=== PATIENT | female | born 1965 | race Two or more races ===

== ENCOUNTER → 2020-09-18 14:12 | Outpatient (BNVA) | payer OTHER, SELFPAY | PROVIDERS: PCP Nurse Practitioner Family; Visit Provider Nurse Practitioner Family | DX: Z13.89 Encounter for screening for other disorder (principal) | CPT/HCPCS: Q3014 ==

== ENCOUNTER → 2020-10-19 13:11 | Outpatient (BNVA) | payer OTHER, SELFPAY | PROVIDERS: PCP Internal Medicine; Visit Provider Nurse Practitioner Family | DX: R07.89 Other chest pain (principal); R06.00 Dyspnea, unspecified | CPT/HCPCS: 93005; 99202; Q3014 ==

== ENCOUNTER → 2020-10-23 07:41 | Outpatient (REF) | payer OTHER, SELFPAY ==
--- NOTE | 2020-10-23 07:47 | CA_ITS ---
Acquisition Time: 2020-10-23 08:28:55 Total Exercise Time: 00:05:11 Test Indications: CP Medications: SEE CHART Protocol: PITO Max HR: 141 BPM 86% of Pred: 163 BPM Max BP: 150/080 mmHG Max Work Load: 7.0 METS Exercise stress test using Pito protocol total of 5 min 11 sec. METS 7.00 and TAPHR up to 86 %. Pt tolerated well, denies any anginal sx. EKG without any arrhythmias, no ischemic changes seen during exercise or in recovery. Normotensive response to exercise. Test reviewed with Dr. Moon Referred By: Sandoval Moon Overread By: Liane Guerrero NP
== END ==
LOC: HO.CARD 07:41
PROVIDERS: Visit Provider Internal Medicine Cardiovascular Disease
DX: R07.89 Other chest pain (principal); R06.00 Dyspnea, unspecified
CPT/HCPCS: 93016; 93017; 93018

== ENCOUNTER → 2020-11-30 09:29 | Outpatient (REF) | payer OTHER, SELFPAY ==
--- NOTE | 2020-11-30 09:33 | CA_ITS ---
Transthoracic Echocardiogram Patient (Last, First, Middle): Valerie Alford M Gender: Female Date of : 1965 Age: 55 Procedure Date: 11/30/2020 Procedure Type: Transthoracic Echocardiogram Location: OP Height: 162.56 cm Weight: 107.5 kg BSA: 2.10 m2 Heart Rate: bpm BP: 128 / 80 mmHg Counter Attendant: Referring MD: Sandoval Moon MD Symptoms: R07.89 - Other chest pain Study Quality: Fair ECG Rhythm: Sinus Conclusions: - The left ventricular systolic function is normal. The visually estimated ejection fraction is between 60-65%. - No obvious valvular pathology seen on this study. Findings Left Ventricle Normal left ventricular cavity size. There is normal left ventricular wall thickness. The left ventricular systolic function is normal. The visually estimated ejection fraction is between 60-65%. There is no evidence of regional wall motion abnormalities. Diastolic function is normal for age. Right Ventricle Normal right ventricular cavity size and systolic function. Atria The left atrium is normal in size. The right atrium is normal in size. Aortic Valve The aortic valve was not well visualized. There is no aortic valve stenosis. There is no aortic valve regurgitation. Mitral Valve The mitral valve appears normal. There is no mitral valve regurgitation. There is no mitral valve stenosis. Pulmonic Valve The pulmonic valve was not well visualized. Tricuspid Valve Normal tricuspid valve structure. There is trace tricuspid valve regurgitation. The pulmonary artery systolic pressure is normal. Great Vessels The aortic annulus, sinuses of valsalva, and asc aorta are normal in size. Venous The inferior vena cava is normal in size and collapses greater than 50% with inspiration. Pericardium/Pleural There is no evidence of pericardial effusion. Prior Study Comparison No prior study available for comparison. Recommendations, Care & Conclusions No obvious valvular pathology seen on this study. Measurements 2D Linear Measurements IVSd: 1.17 0.6-0.9/0.6-1.0 cm LVIDd: 3.92 3.9-5.3/4.2-5.9 cm LVIDd Index: 1.87 2.4-3.2/2.2-3.1 cm/m2 LVIDs: 2.25 2.0-3.6 cm LVPWd: 1.11 0.7-1.1 cm Ao Root: 2.90 2.1-3.5 cm LA Diam: 3.50 2.7-3.8/3.0-4.0 cm LAIDs Index: 1.67 1.5-2.3 cm/m2 LV Mass: 185.22 67-162/88-224 g LV Mass Index: 88.20 43-95/49-115 g/m2 LVOT Diam: 2.10 3.0+(-)1.3 cm Mitral Valve MV Pk E: 0.95 MV PK A: 0.79 MV Decel Time: 134.00 E/A: 1.20 E'Lateral: 13.60 E'Medial: 12.70 E/E' Med: 7.40 E/E' Lat: 7.00 PHT: 39.00 MVA PHT: 5.64 Decel Mcdonald: 7.07 Aortic Valve AoV Pk Spike: 1.28 AoV Mn Spike: 0.86 AoV VTI: 0.29 AoV Pk Grad: 7.00 Aov Mn Grad: 3.00 HERMINIA Cont.VTI: 2.69 LVOT LVOT Pk Spike: 0.92 LVOT Mn Spike: 0.55 LVOT VTI: 0.23 LVOT Pk Grad: 3.00 LVOT Mn Grad: 2.00 LVOT Diam: 2.10 LVOT Area: 3.46 Diastolic Function MV Pk E: 0.95 MV Pk A: 0.79 E/A: 1.20 E'Medial: 12.70 E/E' Med: 7.40 E' Laterial: 13.60 E/E' Lat: 7.00 Tricuspid Valve TR Pk Spike: 1.60 TR Pk Grad: 10.00 RA Press: 3.00 RVSP: 13.00 Great Vessels Aorta Ao Root-2D: 2.90 2.0-3.7 cm Ao Asc: 3.10 2.1-3.4 cm Pulmonary Valve PV Pk Spike: 1.17 Peak PV Grad: 5.00 Updated in Other Vendor System with Status of Final Patrick Connell MD electronically signed on 11/30/2020 4:18:45 PM with status of Final
== END ==
LOC: HO.CARD 09:29
PROVIDERS: Visit Provider Internal Medicine Cardiovascular Disease
DX: R07.89 Other chest pain (principal); R06.00 Dyspnea, unspecified
CPT/HCPCS: 93306

== ENCOUNTER 2020-12-10 08:00 | Day surgery (SDC) | payer OTHER, SELFPAY ==
[2020-12-04 09:22] VITALS: BMI 46.1
--- NOTE | 2020-12-09 09:23 | P.CONAN_ITS ---
Documented by User: Valentina Perry 12/09/20 09:25 HPI - Anesthesia Eval Consult details Narrative: 55yo F for Colonoscopy Cardiac cleared at [facility] (sent by GI for pt report of chest pressure) ON LICENSE OF [facility] Active Problems Active Problems: All Active Problems (Updated 12/04/20 @ 09:21 by Angeline Kilgore) COUCH (dyspnea on exertion) (Acute) Chest pressure (Acute) Past Medical History Medical History Asthma Elevated cholesterol HTN (hypertension) Hx of migraine headaches Hx of renal calculi Family History Family History Mother HTN (hypertension) Cancer Family/Other Cancer HTN (hypertension) Surgical History Surgical History H/O colonoscopy History of pterygium excision Hx of dilation and curettage Hx of hemorrhoidectomy Hx of lithotripsy Hx of oophorectomy Social History Social History Household Members: None Smoking Status: Never smoker Use of substances other than those prescribed or required for medical reasons: No Advance Directives Information Provided: No Current occupational status: disabled [employer] Allergies Allergy/AdvReac Type Severity Reaction Status Date / Time No Known Allergies Allergy Verified 10/19/20 13:11 Home Medications Medication Instructions Recorded Confirmed Last Taken Type albuterol sulfate 90 mcg/actuation 2 puff INHALATION Q4-6H PRN 09/18/20 12/04/20 Unknown History aerosol inhaler ztcafqllru-pcygqjhhgrglc-yydevhvc 1 cap PO Q4H PRN 09/18/20 12/04/20 Unknown History 50 mg-300 mg-40 mg capsule cholecalciferol (vitamin D3) 25 25 mcg PO DAILY 09/18/20 12/04/20 Unknown History mcg (1,000 unit) capsule furosemide 20 mg tablet 20 mg PO DAILY 09/18/20 12/04/20 Unknown History hydrochlorothiazide 25 mg tablet 25 mg PO DAILY 09/18/20 12/04/20 Unknown History loratadine 10 mg capsule 10 mg PO DAILY 09/18/20 12/04/20 Unknown History propranolol 160 mg capsule,24 160 mg PO DAILY 09/18/20 12/04/20 Unknown History hr,extended release simvastatin 20 mg tablet 20 mg PO DAILY 09/18/20 12/04/20 Unknown History albuterol sulfate 2.5 mg INHALATION TID 10/19/20 12/04/20 Unknown History blood pressure test kit-shalom #1 ea 10/19/20 Unknown History diclofenac sodium 1 % topical gel 1 ea TOPICAL DAILY 10/19/20 12/04/20 Unknown History paroxetine HCl 10 mg tablet 10 mg PO DAILY 10/19/20 12/04/20 Unknown History Exam Exam Date and Time: December 09, 2020922 Height,Weight and Vital Signs: Height 5 ft 4 in Weight 122 kg Narrative Narrative: EKG 09/2020 NSR, 71/min, normal ECG< QTc 408 msec 10/2020 Exercise stress test using Bentley protocol total of 5 min 11 sec. METS 7.00 and TAPHR up to 86 %. Pt tolerated well, denies any anginal sx. EKG without any arrhythmias, no ischemic changes seen during exercise or in recovery. Normotensive response to exercise. Echo 11/2020 Conclusions: - The left ventricular systolic function is normal. The visually estimated ejection fraction is between 60-65%. - No obvious valvular pathology seen on this study. Assessment and Plan Assessment Anesthesia Assessment: Chart Reviewed Documented by User: Emre Broussard MD 12/10/20 09:07 ON LICENSE OF [facility] Past Medical History Medical History Asthma Elevated cholesterol HTN (hypertension) Hx of migraine headaches Hx of renal calculi Family History Family History Mother HTN (hypertension) Cancer Family/Other Cancer HTN (hypertension) Surgical History Surgical History H/O colonoscopy History of pterygium excision Hx of dilation and curettage Hx of hemorrhoidectomy Hx of lithotripsy Hx of oophorectomy Social History Social History Household Members: None Smoking Status: Never smoker Use of substances other than those prescribed or required for medical reasons: No Advance Directives Information Provided: No Current occupational status: disabled Meds Allergies Allergy/AdvReac Type Severity Reaction Status Date / Time No Known Allergies Allergy Verified 10/19/20 13:11 Home Medications Medication Instructions Recorded Confirmed Last Taken Type albuterol sulfate 90 mcg/actuation 2 puff INHALATION Q4-6H PRN 09/18/20 12/04/20 Unknown History aerosol inhaler hyxuklynxx-rbgtinpzpvrru-kauibivh 1 cap PO Q4H PRN 09/18/20 12/04/20 Unknown History 50 mg-300 mg-40 mg capsule cholecalciferol (vitamin D3) 25 25 mcg PO DAILY 09/18/20 12/04/20 Unknown History mcg (1,000 unit) capsule furosemide 20 mg tablet 20 mg PO DAILY 09/18/20 12/04/20 Unknown History hydrochlorothiazide 25 mg tablet 25 mg PO DAILY 09/18/20 12/04/20 Unknown History loratadine 10 mg capsule 10 mg PO DAILY 09/18/20 12/04/20 Unknown History propranolol 160 mg capsule,24 160 mg PO DAILY 09/18/20 12/04/20 Unknown History hr,extended release simvastatin 20 mg tablet 20 mg PO DAILY 09/18/20 12/04/20 Unknown History albuterol sulfate 2.5 mg INHALATION TID 10/19/20 12/04/20 Unknown History blood pressure test kit-large #1 ea 10/19/20 Unknown History diclofenac sodium 1 % topical gel 1 ea TOPICAL DAILY 10/19/20 12/04/20 Unknown History paroxetine HCl 10 mg tablet 10 mg PO DAILY 10/19/20 12/04/20 Unknown History Assessment and Plan Assessment Anesthesia Assessment: Anesthesia Plan Discussed Final Anesthetic Review NPO: Yes ASA Class: III Final Preanesthetic Review: No Changes in Pt Med Stat, Meds/Allgs Chart Reviewed, Consent Obtained/Reviewed and Anes Risks/Benef Reviewed Patient Risk: High Procedure Risk: Low Anesthetic Plan Anesthetic Plan: MAC: Disposition: Standard PACU
[2020-12-10 08:40] VITALS: BP 149/88; PULSE 90; RESP 16; TEMP 36.4; O2SAT 97
--- NOTE | 2020-12-10 08:58 | MHC.SHP ---
Pre-Procedural Eval Section B Chief Complaint: Screening Relevant Family History (Specify if Yes): No Relevant Social History: None Present Medications: see Short Stay Collaborative assessment Medical History: Significant History (Asthma Elevated cholesterol HTN (hypertension) Hx of migraine headaches Hx of renal calculi) History of Previous Operations: Relevant previous surgery/procedure and date(s) (H/O colonoscopy History of pterygium excision Hx of dilation and curettage Hx of hemorrhoidectomy Hx of lithotripsy Hx of oophorectomy) Allergies: Allergies Allergy/AdvReac Type Severity Reaction Status Date / Time No Known Allergies Allergy Verified 10/19/20 13:11 Review of Systems Sugical H&P ROS: Negative: Constitution, Cardiovascular, Respiratory, Neurological, Psychiatric, Hem-Onc, Allergic/Immunologic, Gastrointestinal, Genitourinary, Musculoskeletal, Integumentary, Endocrine and Eyes/Ears/Nose/Throat Exam Surgical H&P Exam: Normal: HEENT, Normal: Heart, Normal: Lungs, Normal: Extremities, Normal: Abdomen, Normal: Skin and Normal: Neurological Plan Diagnosis/Plan: Unchanged I have reviewed the history and physical and performed a pertinent physical examination on my patient. No changes have occurred unless specified.
--- NOTE | 2020-12-10 08:59 | PM.OP ---
Brief Operative Note Date of Service: 12/10/20 Pre-op diagnosis: colon screening Post-op diagnosis: same Surgeon: Sherrie Infante MD Anesthesia: MAC Was an Rug Setter Velvet used for this Procedure?: No Estimated blood loss (mL): 0 Condition: stable Disposition: PACU
--- NOTE | 2020-12-10 09:00 | W.PM.OPN ---
Operative Note Operative Note Date of Service: 12/10/20 Narrative: Operative Information Procedure Description: Colonoscopy COLONOSCOPY Instrument: Olympus variable stiffness pediatric scope 190L Colonoscopy Monitoring: Vital signs and clinical assessment, continuous EKG monitoring, Pulse oximetry, Carbon Dioxide monitoring and blood pressure monitoring were done throughout the procedure. Colon withdrawal time was 8 minutes. Procedure: The patient was placed in the left lateral decubitis position and pre-procedure medications were administered. After a digital rectal examination of the ano-rectum, the video colonoscope was inserted into the rectum and advanced through the colon to the cecum/TI. The colonoscope was slowly withdrawn in a retrograde panoramic fashion and the colon mucosa was carefully examined including a retroflexed view of the rectum. Findings and interventions are described below. Procedure Difficulty:easy Findings: Terminal Ileum- mild erythema, bx taken Cecum:normal, bx taken Ascending Colon: normal, bx taken Transverse Colon -normal Descending Colon:normal Sigmoid Colon: mild to moderate diverticulosis noted Rectum: Retroflexion with medium sized internal hemorrhoids, grade II Anorectum - internal hemorrhoids seen at anal verge Colon preparation: [place] Bowel Preparation Scale Right colon; 3 Transverse colon: 2 Left colon; 2 (0 = Unprepared colon segment with mucosa not seen due to solid stool that cannot be cleared. 1 = Portion of mucosa of the colon segment seen, but other areas of the colon segment not well seen due to staining, residual stool and/or opaque liquid. 2 = Minor amount of residual staining, small fragments of stool and/or opaque liquid, but mucosa of colon segment seen well. 3 = Entire mucosa of colon segment seen well with no residual staining, small fragments of stool or opaque liquid) Impression and Post Procedure Diagnosis: internal hemorrhoids diverticular disease mild ileitis Plan: High fiber diet leaflet Avoid straining at stool, epsom salts and sitz bath, anusol supps or cream as needed Repeat Colonoscopy in 10 years or earlier if clinically indicated Above findings were reviewed with the patient and relevant handouts were provided if indicated.
[2020-12-10] MEDS: Lactated Ringers 1,000 ML 100 ML IVCONT (09:01)
[2020-12-10 09:39] VITALS: BP 122/71; PULSE 84; RESP 16; TEMP 36.2; O2SAT 99
[2020-12-10 09:44] VITALS: BP 140/74; PULSE 85; RESP 20; O2SAT 98
== END 2020-12-10 10:30 | disposition home or self-care (01) ==
PROVIDERS: Visit Provider Internal Medicine Gastroenterology
PROC: 0DJD8ZZ Inspection of Lower Intestinal Tract, Via Natural or Artificial Opening Endoscopic (ICD-10-PCS; CPT 45378; principal; 2020-12-10 09:20)
DX: Z12.11 Encounter for screening for malignant neoplasm of colon (principal); K52.89 Other specified noninfective gastroenteritis and colitis; K57.30 Diverticulosis of large intestine without perforation or abscess without bleeding; K64.1 Second degree hemorrhoids; K64.4 Residual hemorrhoidal skin tags; I10 Essential (primary) hypertension; J45.909 Unspecified asthma, uncomplicated; Z79.899 Other long term (current) drug therapy
CPT/HCPCS: 45380; 88305

== ENCOUNTER → 2020-12-17 12:44 | Outpatient (BNVA) | payer OTHER, SELFPAY | PROVIDERS: Visit Provider Internal Medicine Cardiovascular Disease | DX: R06.00 Dyspnea, unspecified (principal); R07.89 Other chest pain; I10 Essential (primary) hypertension | CPT/HCPCS: 99212 ==

== ENCOUNTER → 2020-12-24 12:44 | Outpatient (BNVA) | payer OTHER, SELFPAY | PROVIDERS: Visit Provider Nurse Practitioner Family | DX: K59.00 Constipation, unspecified (principal); K57.90 Diverticulosis of intestine, part unspecified, without perforation or abscess without bleeding; Z98.890 Other specified postprocedural states | CPT/HCPCS: 99212 ==

== ENCOUNTER → 2021-01-22 13:41 | Outpatient (BNVA) | payer OTHER, SELFPAY | PROVIDERS: Visit Provider Nurse Practitioner Family | DX: K59.00 Constipation, unspecified (principal) | CPT/HCPCS: 99212 ==

== ENCOUNTER → 2021-06-10 12:32 | Outpatient (BNVA) | payer OTHER, SELFPAY | PROVIDERS: Visit Provider Internal Medicine Cardiovascular Disease | DX: I10 Essential (primary) hypertension (principal); R06.00 Dyspnea, unspecified | CPT/HCPCS: 93005; 99212 ==

== ENCOUNTER 2021-06-24 13:38 | Outpatient (REF) | payer OTHER, SELFPAY ==
[2021-06-24 14:41] LABS: Anion Gap 7 (12-20); Blood Urea Nitrogen 16 mg/dL (9-16); Calcium 9.6 mg/dL (8.4-10.2); Carbon Dioxide 29 mmol/L (22-29); Chloride 104 mmol/L (96-108); Estimated Glomerular Filt Rate > 60; Glucose Random 110 mg/dL (60-115); Sodium 136 mmol/L (135-145)
== END 2021-06-24 13:39 | disposition home or self-care (01) ==
LOC: HO.LAB 13:38
PROVIDERS: Visit Provider Internal Medicine Cardiovascular Disease
DX: I10 Essential (primary) hypertension (principal)
CPT/HCPCS: 36415; 80048

== ENCOUNTER → 2021-07-26 14:04 | Outpatient (BNVA) | payer OTHER, SELFPAY | PROVIDERS: Visit Provider Nurse Practitioner Family | DX: K59.04 Chronic idiopathic constipation (principal); K58.1 Irritable bowel syndrome with constipation | CPT/HCPCS: 99212 ==

== ENCOUNTER → 2021-08-04 14:23 | Outpatient (BNVA) | payer OTHER, SELFPAY | PROVIDERS: Visit Provider Internal Medicine Pulmonary Disease | DX: G47.33 Obstructive sleep apnea (adult) (pediatric) (principal); J45.909 Unspecified asthma, uncomplicated | CPT/HCPCS: 99202 ==

== ENCOUNTER 2021-08-27 08:47 | Outpatient (REF) | payer OTHER, SELFPAY ==
--- NOTE | 2021-08-27 17:39 | PFT_ITS ---
INDICATION: Dyspnea. SPIROMETRY: The FEV1 to FVC of 71% with an FEV1 of 1.65 L which is 62% predicted and an FVC of 2.31 L, which is 71% predicted. No significant response to bronchodilators noted. To note, the patient has significant small airway disease with a MIT15-36 of 38% predicted. Maximum voluntary ventilation 86% predicted. LUNG VOLUMES: Total lung capacity 90% predicted with residual volume 116% predicted in an expiratory reserve volume of 23% predicted. DIFFUSION CAPACITY: Within normal limits. COMPARISON: Not available. INTERPRETATION: There appears to be obstructive ventilatory defect consistent with moderate COPD. The patient does have significant concavity of the expiratory phase and a significant decrease in FEV1 to FVC along with small airways disease. No significant response to bronchodilators noted. No restrictive ventilatory defects identified. The patient does have a trend of air trapping due to the small airways disease and has a decrease in the expiratory reserve volume secondary to an elevated BMI. Diffusion capacity is within normal limits. Clinical correlation is warranted. Abhay Camarena MD MR/MODL / [id number]
== END 2021-08-27 08:48 | disposition home or self-care (01) ==
LOC: HO.RESP 08:47
PROVIDERS: Visit Provider Internal Medicine
DX: R06.00 Dyspnea, unspecified (principal); J45.909 Unspecified asthma, uncomplicated; G47.33 Obstructive sleep apnea (adult) (pediatric)
CPT/HCPCS: 94060; 94727; 94729; 99212

== ENCOUNTER → 2021-09-30 13:32 | Outpatient (BNVA) | payer OTHER, SELFPAY | PROVIDERS: Visit Provider Nurse Practitioner Family | DX: R07.89 Other chest pain (principal); R06.00 Dyspnea, unspecified; R60.0 Localized edema; I10 Essential (primary) hypertension | CPT/HCPCS: Q3014 ==

== ENCOUNTER → 2021-12-17 13:07 | Outpatient (BNVA) | payer OTHER, SELFPAY | PROVIDERS: Visit Provider Nurse Practitioner Family | DX: K58.1 Irritable bowel syndrome with constipation (principal); K59.04 Chronic idiopathic constipation; R10.31 Right lower quadrant pain | CPT/HCPCS: 99212 ==

== ENCOUNTER 2022-01-20 14:28 | Outpatient (REF) | payer OTHER, SELFPAY ==
--- NOTE | ~2022-01-20 | CT_ITS ---
EXAMINATION: CT ABDOMEN AND PELVIS WITHOUT CONTRAST CLINICAL INFORMATION: Abdominal pain, unspecified. COMPARISON: None TECHNIQUE: Multidetector volumetric imaging was performed from the superior aspect of the liver through the pubic symphysis. Sagittal and coronal reformatted images were obtained on the technologist's workstation. This CT examination was performed using dose optimization techniques as appropriate, variously including the following: *Automated exposure control *Adjustment of mA and/or kV according to patient size (this includes techniques or standardized protocols for targeted exams where dose is matched to indication/reason for exam; i.e. extremities or head) *Use of iterative reconstruction technique DLP: 845 mGy-cm FINDINGS: LUNG BASES: There is a left lower lobe pleural calcification or thickening. Mild atelectatic changes or scarring seen in left lung base. LIVER, GALLBLADDER, AND BILIARY TREE: The liver is normal in size, shape, and attenuation. No focal hepatic lesion or biliary ductal dilatation is present. The gallbladder is contracted. PANCREAS: Unremarkable. SPLEEN: Unremarkable. ADRENAL GLANDS: Unremarkable. KIDNEYS AND URETERS: The kidneys are normal in size, shape, and attenuation. There is a radiopaque 1 cm calcification with cortical thinning lower pole left kidney. A 5 cm cyst partially exophytic midpole left kidney is noted. Mild cortical scarring in the upper pole is seen as well. The right kidneys is relatively unremarkable with a small extrarenal kidney pelvis. BLADDER: Unremarkable. GASTROINTESTINAL TRACT: There is scattered stool, diverticula and gas seen throughout the colon without distention. There is a tubular lesion in the distal ascending colon measuring 3.5 cm. Question large lipoma versus large stool. Oral contrast opacified small bowel loops are unremarkable. Appendix is not visualized. ABDOMINAL WALL: There is a small umbilical hernia containing fat. LYMPH NODES: Normal. VASCULAR: Unremarkable. PELVIC VISCERA: There is no free air or free fluid. The uterus is retroverted. No abnormal pelvic mass or lymphadenopathy. OSSEOUS STRUCTURES: Unremarkable imaging of the bones. CT/CT abdomen pelvis wo con IMPRESSION: Nonobstructive radiopaque calculi lower pole and exophytic cyst 5 cm midpole left kidney but no hydronephrosis. Chronic diverticulosis without diverticulitis. Mild constipation. There is a probable lipoma or large stool in the right proximal ascending colon. Fleischner guidelines were followed.
[2022-01-20] MEDS: Barium Sulfate Oral (Mocha) 450 ML ORAL.SUSP 900 ML PO (16:32)
== END 2022-01-20 14:29 | disposition home or self-care (01) ==
LOC: HO.CT 14:28
PROVIDERS: Visit Provider Nurse Practitioner Family
DX: R10.9 Unspecified abdominal pain (principal)
CPT/HCPCS: 74176

== ENCOUNTER 2022-09-19 10:41 | Outpatient (REF) | payer OTHER, SELFPAY ==
[2022-09-19 11:40] VITALS: BP 212/101; PULSE 97; RESP 16; TEMP 36.2; O2SAT 98
== END 2022-09-19 10:42 | disposition home or self-care (01) ==
LOC: HO.MS 10:41
PROVIDERS: Visit Provider Ophthalmology
DX: H02.822 Cysts of right lower eyelid (principal)

== ENCOUNTER → 2022-10-11 12:47 | Outpatient (BNVA) | payer OTHER, SELFPAY | PROVIDERS: Visit Provider Internal Medicine Cardiovascular Disease | DX: I10 Essential (primary) hypertension (principal); R06.00 Dyspnea, unspecified; Z79.899 Other long term (current) drug therapy | CPT/HCPCS: 93005; 99212 ==

== ENCOUNTER 2022-10-31 10:15 | Outpatient (REF) | payer OTHER, SELFPAY ==
[2022-10-31 11:54] VITALS: BP 143/73; PULSE 85; RESP 16; TEMP 36.2; O2SAT 99
[2022-10-31 11:55] VITALS: BMI 48.4
[2022-10-31 12:54] VITALS: BP 203/69; PULSE 92; RESP 18; O2SAT 98
[2022-10-31 13:05] VITALS: BP 140/96; PULSE 92; RESP 18; O2SAT 98
== END 2022-10-31 10:16 | disposition home or self-care (01) ==
LOC: HO.MS 10:15
PROVIDERS: Visit Provider Ophthalmology
PROC: (CPT 67840; principal; 2022-10-31 13:30)
DX: H02.822 Cysts of right lower eyelid (principal)
CPT/HCPCS: 67840; 88304; 88305

== ENCOUNTER 2023-01-17 19:53 | Emergency (ER) | payer OTHER, SELFPAY ==
--- NOTE | ~2023-01-17 | US_ITS ---
EXAMINATION: US VENOUS ULTRASOUND WITH DOPPLER LOWER EXTREMITY, LEFT CLINICAL INFORMATION: Calf pain and tenderness. COMPARISON: Right lower extremity venous ultrasound dated 03/06/2007. TECHNIQUE: Ultrasound of the deep veins is performed from the hip to the calf with compression sonography and color and pulse Doppler assessment. Spectral analysis with color-flow imaging is performed. FINDINGS: There is normal venous compression and respiratory variation and augmented flow. The visualized common femoral vein, superficial femoral vein, profunda femoral vein, popliteal vein, and the trifurcation region shows no evidence of deep venous thrombosis. There is no significant popliteal fossa cyst. If the patient's symptoms persist, followup ultrasound in 5 days 7 days might be of value to exclude proximal propagation from a non-visualized calf vein. US/US venous duplex LE IMPRESSION: No DVT demonstrated in the left lower extremity.
--- NOTE | 2023-01-17 20:11 | ED_ITS ---
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 Patient reports swelling to both legs but left greater than right over the last month Denies any injury to the area Her symptoms are worse with walking Denies any redness, swelling She complains of pain behind her knee and to the left calf Patient reports that she has a history of ?water retention. ? She states that she has compression stockings on the she does not wear No other complaints or concerns at this time Denies any chest pain, shortness of breath, cough Related Data Home Medications Medication Instructions Recorded Confirmed albuterol sulfate 90 mcg/actuation 2 puff inhalation Q4-6H PRN 09/18/20 10/11/22 aerosol inhaler Shortness Of Breath Or Wheezing cholecalciferol (vitamin D3) 25 25 mcg PO DAILY 09/18/20 10/11/22 mcg (1,000 unit) capsule loratadine 10 mg capsule 10 mg PO DAILY 09/18/20 10/11/22 simvastatin 20 mg tablet 20 mg PO DAILY 09/18/20 10/11/22 albuterol sulfate 2.5 mg/3 mL 2.5 mg inhalation TID 10/19/20 10/11/22 (0.083 %) solution for nebulization blood pressure test kit-large #1 ea 10/19/20 10/11/22 diclofenac sodium 1 % topical gel 1 ea topical DAILY 10/19/20 10/11/22 paroxetine HCl 10 mg tablet 10 mg PO DAILY 10/19/20 10/11/22 vsqdcgxteg-pelfrvacafcda-rejvadvy 1 tab PO Q4H 10/11/22 10/11/22 50 mg-325 mg-40 mg tablet losartan 25 mg tablet 25 mg PO DAILY 10/11/22 10/11/22 propranolol 80 mg capsule,24 80 mg PO DAILY 10/11/22 10/11/22 hr,extended release Previous Rx's Medication Instructions Recorded plecanatide 3 mg tablet (Trulance) 3 mg PO DAILY #30 tabs 07/26/21 wheat dextrin 3 gram/3.5 gram oral 1 packet PO DAILY #28 ea 07/26/21 powder packet (Benefiber Clear Sugar Free(dextrin)) fluticasone 250 mcg-salmeterol 50 1 inh inhalation BID 30 days #1 ea 08/04/21 mcg/dose blistr powdr for inhalation (Advair Diskus) furosemide 20 mg tablet (Lasix) 20 mg PO DAILY #90 tabs 09/30/21 Allergies Allergy/AdvReac Type Severity Reaction Status Date / Time No Known Allergies Allergy Verified 01/17/23 20:11 Review of Systems Constitutional: Constitutional: Reports as per HPI, Denies chills, Denies fatigue, Denies fever(s) and Denies headache(s) ENT: Denies headache(s) Cardiovascular: Cardiovascular: Denies chest pain, Reports leg edema and Denies dyspnea Respiratory: Respiratory: Denies cough and Denies dyspnea Neurologic: Denies headache(s) and Denies focal weakness Endocrine: Endocrine: Denies fatigue PMFSH Past Medical History Medical History Asthma Elevated cholesterol HTN (hypertension) Hx of migraine headaches Hx of renal calculi Surgical History H/O colonoscopy History of pterygium excision Hx of dilation and curettage Hx of hemorrhoidectomy Hx of lithotripsy Hx of oophorectomy Family History Family History Mother HTN (hypertension) Cancer Family/Other Cancer HTN (hypertension) Social History Social History (Updated 10/11/22 @ 12:58 by MEKHI Clemens) Household Members: None Alcohol intake: never Patient Tobacco Use Status: Former Tobacco user Years Smoked: 15 +/- Advance Directives: No Advance Directives Information Provided: No Current occupational status: disabled Physical Exam ED Vital Signs: Vital Signs - 24 hr 01/17/23 20:12 Temperature 97.8 F Pulse Rate 93 Respiratory Rate 18 Blood Pressure 183/71 H Pulse Oximetry 98 Oxygen Delivery Method Room Air BMI result Body Mass Index 49.0 Const General: healthy appearing, comfortable, no acute distress, alert and awake Nutritional Appearance: well nourished Orientation/consciousness: patient oriented x3 HENMT Head: Yes normocephalic and Yes atraumatic Eyes Eyelids: Yes eyelids normal Conjunctivae: conjunctivae normal Sclerae: sclerae normal Corneas: corneas normal Pupils: Equal, round and reactive pupils present EOM: EOMs intact bilaterally Neck Neck: Yes full ROM Resp Effort & Inspection: normal respiratory effort, able to speak in complete sentences and not labored Cardio Other: One to 2+ bilateral pitting edema. Skin Other: Skin is warm, dry, well perfused throughout General skin exam: no rashes or lesions noted and elasticity normal Neuro General: patient oriented x3 Cranial nerves: Yes Equal, round and reactive pupils present and Yes Bilaterally intact EOM present Cognition (Neuro): normal cognition Extrem Other: Moving all extremities well without any obvious deformities. Calf tenderness on the left, negative Homans sign, no palpable cords. Course Course Course Narrative: This is an RME: Additional HPI, ROS, PE not included below will be deferred to primary provider. Patient is a 57-year-old [place]ian speaking female with history of SUJATHA, HTN, asthma presenting to the emergency department with complaint of left medial knee pain and distal swelling for one month. She denies any falls or other injury. Reports no worsening of shortness of breath from baseline asthma. Tenderness to palpation of medial aspect of posterior lower leg. Plan: labs, LE U/S Medical Decision Making Medical Decision Making [facility] Narrative: 57-year-old female with past medical history significant for obesity, hypertension presents for evaluation of leg swelling. She has no redness, skin changes or fever to suggest cellulitis. Denies any trauma to warrant x-ray imaging. Ultrasound the left lower extremity rules out DVT and popliteal fossa cyst. The patient's symptoms are most likely related to dependent edema, she is not compliant with her compression stockings. Patient's history is not clinically consistent with CHF as she has no cough, shortness of breath. BNP is pending. Labs are otherwise without significant abnormality. She has a mild leukocytosis of 11.7k. Patient does admit that she has a poor diet and frequent salt intake Differential Diagnosis Dependent edema CHF DVT Douglas cyst Volume overload Lab Data [facility] Lab Attestation statement: I reviewed the patient's lab results. Mild leukocytosis to 11.7k. No left shift. Chemistries without significant abnormality. 01/17/23 22:13 01/17/23 21:20 Labs: Lab Results 01/17/23 01/17/23 Range/Units 21:20 22:13 WBC 11.7 H (4.8-10.8) X10*3/uL RBC 4.88 (4.20-5.50) X10*6/uL Hgb 13.4 (12.0-16.0) g/dl Hct 41.4 (37.0-47.0) % MCV 84.8 (80.0-98.0) fL MCH 27.5 (27.0-33.0) pg MCHC 32.4 (31.0-35.0) g/dl RDW 13.7 (11.0-16.0) % Plt Count 219 (160-400) X10*3/uL MPV 11.3 (9.4-12.3) fL Immature Gran % (Auto) 0.4 (0.0-0.4) % Neut % (Auto) 66.7 (45-73) % Lymph % (Auto) 25.1 (20-40) % [place] % (Auto) 6.3 (2-11) % Eos % (Auto) 1.1 (0-4) % Baso % (Auto) 0.4 (0-2) % Lymph # (Auto) 3.0 (1.2-4.9) X10*3/uL [place] # (Auto) 0.7 (0.1-1.2) X10*3/uL Eos # (Auto) 0.1 (0.0-0.4) X10*3/uL Baso # (Auto) 0.1 (0.0-0.2) X10*3/uL Abs Immat Gran (auto) 0.05 H (0.00-0.03) X10*3/uL Absolute Neuts (auto) 7.8 (2.0-8.3) x10*3/uL Absolute Nucleated RBC 0.000 (0.0-0.012) X10*3/uL Nucleated RBC % (auto) 0.0 (0.0-0.2) /100WBC Sodium 139 (135-145) mmol/L Potassium 4.5 (3.3-5.1) mmol/L Chloride 107 (96-108) mmol/L Carbon Dioxide 21 L (22-29) mmol/L Anion Gap 16 (12-20) BUN 13 (9-16) mg/dL Creatinine 0.71 (0.5-1.4) mg/dL Estim Creat Clear Calc 113.9 Estimated GFR > 60 Random Glucose 93 (60-115) mg/dL Calcium 10.3 H D (8.4-10.2) mg/dL Total Bilirubin 0.2 (0.0-1.0) mg/dL AST 17 (5-31) U/L ALT 12 (0-31) U/L Alkaline Phosphatase 90 (39-117) U/L Total Protein 7.5 (6.5-8.0) g/dL Albumin 3.9 (3.5-5.0) g/dL Radiology Impression Discussion of test interpretation with radiology: I have reviewed the radiologist's reading. (No sonographic evidence of DVT) Discharge Plan Discharge Clinical Impression: Leg edema Patient Disposition: Home, Self-Care Instructions: Leg Edema (ED) Additional Instructions: Your workup in the emergency department today was reassuring. Your ultrasound did not show any evidence of DVT/blood clot Your symptoms are likely attributed to too much salt intake and water retention Avoid excessive consumption of salt and fluid You may use a compression stocking sort the day but do not wear overnight Elevate your legs while resting Prescriptions: No Action albuterol sulfate 2.5 mg /3 mL (0.083 %) solution for nebulization 2.5 mg inhalation TID (DME) blood pressure test kit-large Kit See Rx Instructions .ROUTE DAILY Qty: 1 Rx Instructions: As directed diclofenac sodium 1 % gel 1 ea topical DAILY paroxetine HCl 10 mg tablet 10 mg PO DAILY albuterol sulfate 90 mcg/actuation HFA aerosol inhaler 2 puff inhalation Q4-6H PRN (Reason: Shortness Of Breath Or Wheezing) simvastatin 20 mg tablet 20 mg PO DAILY cholecalciferol (vitamin D3) 25 mcg (1,000 unit) capsule 25 mcg PO DAILY loratadine 10 mg capsule 10 mg PO DAILY Trulance 3 mg tablet 3 mg PO DAILY Qty: 30 3RF Benefiber Clear SF (dextrin) 3 gram/3.5 gram powder in packet 1 packet PO DAILY Qty: 28 5RF Rx Instructions: mix into at least 4 oz water or juice before administering furosemide [Lasix] 20 mg tablet 20 mg PO DAILY Qty: 90 3RF fluticasone propion-salmeterol [Advair Diskus] 250-50 mcg/dose blister with device 1 inh inhalation BID 30 Days Qty: 1 6RF eeamjrwkab-vfpvnqihjopmv-wspj 50-325-40 mg tablet 1 tab PO Q4H propranolol 80 mg capsule,extended release 24 hr 80 mg PO DAILY losartan 25 mg tablet 25 mg PO DAILY
[2023-01-17 20:12] VITALS: BP 183/71; PULSE 93; RESP 18; TEMP 36.6; O2SAT 98; BMI 49.0
[2023-01-17 21:50] LABS: Alanine Aminotransferase 12 U/L (0-31); Albumin Level 3.9 g/dL (3.5-5.0); Alkaline Phosphatase 90 U/L (39-117); Anion Gap 16 (12-20); Aspartate Amino Transferase 17 U/L (5-31); Bilirubin Total 0.2 mg/dL (0.0-1.0); Blood Urea Nitrogen 13 mg/dL (9-16); Calcium 10.3 mg/dL (8.4-10.2); Carbon Dioxide 21 mmol/L (22-29); Chloride 107 mmol/L (96-108); Creatinine Clr Calc Pharmacy 113.9; Estimated Glomerular Filt Rate > 60; Glucose Random 93 mg/dL (60-115); Potassium 4.5 mmol/L (3.3-5.1); Sodium 139 mmol/L (135-145); Total Protein 7.5 g/dL (6.5-8.0)
[2023-01-17 22:24] LABS: Basophils Absolute Auto 0.1 X10*3/uL (0.0-0.2); Basophils Percent Auto 0.4 % (0-2); Eosinophils Absolute Auto 0.1 X10*3/uL (0.0-0.4); Eosinophils Percent Auto 1.1 % (0-4); Hematocrit 41.4 % (37.0-47.0); Hemoglobin 13.4 g/dl (12.0-16.0); Imm Gran Abs Auto 0.05 X10*3/uL (0.00-0.03); Imm Gran Pct Auto 0.4 % (0.0-0.4); Lymphocytes Percent Auto 25.1 % (20-40); Mean Corpuscular HGB Conc 32.4 g/dl (31.0-35.0); Mean Corpuscular Hemoglobin 27.5 pg (27.0-33.0); Mean Corpuscular Volume 84.8 fL (80.0-98.0); Mean Platelet Volume 11.3 fL (9.4-12.3); Monocytes Absolute Auto 0.7 X10*3/uL (0.1-1.2); Monocytes Percent Auto 6.3 % (2-11); Neutrophils Absolute Auto 7.8 x10*3/uL (2.0-8.3); Neutrophils Percent Auto 66.7 % (45-73); Platelet Count 219 X10*3/uL (160-400); Red Blood Count 4.88 X10*6/uL (4.20-5.50); Red Cell Distribution Width 13.7 % (11.0-16.0); White Blood Count 11.7 X10*3/uL (4.8-10.8)
[2023-01-17 22:29] LABS: MANUAL DIFF FLAG NO
[2023-01-17 22:41] LABS: B Type Natriuretic Peptide 14 pg/mL (<100)
== END 2023-01-17 22:57 | disposition home or self-care (01) ==
PROVIDERS: Registered Nurse Emergency; Emergency Provider Student in an Organized Health Care Education/Training Program
DX: R60.0 Localized edema (principal); R06.02 Shortness of breath; Z79.899 Other long term (current) drug therapy
CPT/HCPCS: 36415; 80053; 83880; 85025; 93971; 99282; 99284

== ENCOUNTER 2023-04-25 09:55 | Outpatient (REF) | payer OTHER, SELFPAY | END 2023-04-25 09:56 | disposition home or self-care (01) | LOC: HO.HOSX 09:55 | PROVIDERS: Visit Provider Physician Assistant | DX: Z13.89 Encounter for screening for other disorder (principal) ==

== ENCOUNTER 2023-05-04 10:49 | Outpatient (AMB) | payer OTHER, SELFPAY ==
--- NOTE | 2023-05-04 10:51 | MHC.OFFVIS ---
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 She reports pain worsen in the 6 months. No injury she can recall. States she has weakness in knees and give out often. Reports swelling with prolong walking. Denies injections or surgery in the past. Hx of DVT. Allergies No Known Allergies Allergy (Verified 05/04/23 10:54) Medication List - Last Reconciled 05/04/23 by Va Amaya RN albuterol sulfate 90 mcg/actuation 2 puffs inhalation Q4-6H PRN albuterol sulfate 2.5 mg inhalation TID blood pressure test kit-large As directed kdboockxge-uglfjfgcntrvv-hhmp 50-325-40 mg 1 tab PO Q4H cholecalciferol (vitamin D3) 25 mcg PO DAILY diclofenac sodium 1% 1 ea topical DAILY fluticasone propion-salmeterol 250-50 mcg/dose (Advair Diskus) 1 inh inhalation BID 30 days furosemide (Lasix) 20 mg PO DAILY loratadine 10 mg PO DAILY losartan 25 mg PO DAILY paroxetine HCl 10 mg PO DAILY plecanatide (Trulance) 3 mg PO DAILY propranolol ER 80 mg PO DAILY simvastatin 20 mg PO DAILY wheat dextrin (Benefiber Clear Sugar Free(dextrin)) 1 packet PO DAILY PFSH Medical History Asthma Elevated cholesterol HTN (hypertension) Hx of migraine headaches Hx of renal calculi Surgical History H/O colonoscopy History of pterygium excision Hx of dilation and curettage Hx of hemorrhoidectomy Hx of lithotripsy Hx of oophorectomy Family History Mother HTN (hypertension) Cancer Family/Other Cancer HTN (hypertension) Social History Household Members: None Alcohol intake: never Patient Tobacco Use Status: Former Tobacco user Years Smoked: 15 +/- Current occupational status: disabled Physical Exam Vital Signs: BMI result Body Mass Index 48.9 Const Other: Well-nourished well-developed very friendly female awake alert and oriented x3 in no acute distress Extrem Other: Bilateral lower extremity examination shows good capillary refill, no skin lesions noted, normal sensation light touch Left knee examination is a minimal effusion, palpable crepitus with pain with range of motion, range of motion from -3 degrees to 110 degrees, no instability Results Reviewed Results Reviewed: X-rays of the patient's left knee show moderate joint space narrowing, subchondral sclerosis, no acute bony abnormalities Assessment & Plan Assessment & Plan (1) Left knee pain: Code(s): M25.562 - Pain in left knee Plan: Ms. Alford presents with left knee pain and mechanical symptoms due to degenerative joint disease. I had a lengthy discussion with the patient regarding the treatment options. The patient wishes to hold off on a cortisone injection for now. I agree with this plan. The patient was fitted with a knee brace. I feel that the knee brace is a medical necessity to help with her instability symptoms. This will help reduce the likelihood of falling and subsequent injury. I also gave the patient a prescription for meloxicam. She will follow up with me on an as-needed basis should her symptoms not plateau at an unacceptable level over the next few months. I spent 22 minutes in reviewing the patient's records and imaging studies, seeing the patient and documenting in the medical record. Orders: Orders XR knee LT 3V Today M25.562 - Pain in left knee Medications: New meloxicam 15 mg (2 x 7.5 mg) PO DAILY PRN 30 tabs 2RF pain Coding Level of Care Code New Pt Level 2 (72992) Diagnoses Left knee pain M25.562
[2023-05-04 11:02] VITALS: BMI 48.9
== END 2023-05-04 11:45 | disposition home or self-care (01) ==
PROVIDERS: Visit Provider Orthopaedic Surgery
DX: M25.562 Pain in left knee (principal)
CPT/HCPCS: 99202

== ENCOUNTER 2023-05-04 16:07 | Outpatient (REF) | payer OTHER, SELFPAY ==
--- NOTE | ~2023-05-04 | XR_ITS ---
EXAMINATION: XR KNEE, LEFT CLINICAL INFORMATION: Left knee pain COMPARISON: 04/30/2019 TECHNIQUE: Three views of the left knee. FINDINGS: Progression of advanced degenerative changes with medial joint space narrowing, varus deformity and marginal osteophytes. Prominent lateral marginal and posterior patellar osteophytes. Joint effusion. XR/XR knee LT 3V IMPRESSION: Progression of advanced degenerative changes most notable in the medial compartment. Joint effusion.
== END 2023-05-04 16:08 | disposition home or self-care (01) ==
LOC: HO.HOSX 16:07
PROVIDERS: Visit Provider Orthopaedic Surgery
DX: M17.12 Unilateral primary osteoarthritis, left knee (principal)
CPT/HCPCS: 73562; 99202

== ENCOUNTER 2023-05-25 17:14 | Emergency (ER) | payer OTHER, SELFPAY ==
[2023-05-25 17:17] VITALS: BP 197/102; PULSE 101; RESP 20; TEMP 36.2; O2SAT 98; BMI 48.5
--- NOTE | 2023-05-25 17:17 | ED.GENADULT ---
HPI - General Adult General Chief complaint: Skin/Abscess/Foreign Body Stated complaint: rash on chest Time Seen by Provider: 05/25/23 18:13 Source: patient Mode of arrival: ambulatory Limitations: language barrier History of Present Illness HPI narrative: Patient is a 58 year old assigned female at with a history of HTN presenting to the emergency department today with a rash. Patient states that over the last 3 days she developed hives on her chest and abdomen. Patient states that they are very itchy. Patient denies any new foods or environmental changes. Patient denies any dizziness, lightheadedness, abdominal pain, nausea, vomiting, fever, chills, blurry vision, double vision, loss of vision, chest pain, difficulty breathing, shortness of breath, back pain, night sweats, pain with urination, increased urinary frequency, increased urinary urgency, blood in her urine or stool, syncope or a near syncopal episode, recent trauma or falls, bowel incontinence, bladder incontinence, bowel retention, bladder retention, or any other complaints at this time. Onset (ago): day(s) (3) Location: chest and abdomen Severity: mild Severity scale (1-10): 4 Relieving factors: none Exacerbating factors: none Associated symptoms: rash Treatments prior to arrival: other (benadryl) Related Data Home Medications Medication Instructions Recorded Confirmed albuterol sulfate 90 mcg/actuation 2 puff inhalation Q4-6H PRN 09/18/20 05/04/23 aerosol inhaler Shortness Of Breath Or Wheezing cholecalciferol (vitamin D3) 25 25 mcg PO DAILY 09/18/20 05/04/23 mcg (1,000 unit) capsule loratadine 10 mg capsule 10 mg PO DAILY 09/18/20 05/04/23 simvastatin 20 mg tablet 20 mg PO DAILY 09/18/20 05/04/23 albuterol sulfate 2.5 mg/3 mL 2.5 mg inhalation TID 10/19/20 05/04/23 (0.083 %) solution for nebulization blood pressure test kit-large #1 ea 10/19/20 05/04/23 diclofenac sodium 1 % topical gel 1 ea topical DAILY 10/19/20 05/04/23 paroxetine HCl 10 mg tablet 10 mg PO DAILY 10/19/20 05/04/23 cossbxrvil-ebrvfveeoumqn-lmugemlg 1 tab PO Q4H 10/11/22 05/04/23 50 mg-325 mg-40 mg tablet losartan 25 mg tablet 25 mg PO DAILY 10/11/22 05/04/23 propranolol 80 mg capsule,24 80 mg PO DAILY 10/11/22 05/04/23 hr,extended release Previous Rx's Medication Instructions Recorded plecanatide 3 mg tablet (Trulance) 3 mg PO DAILY #30 tabs 07/26/21 wheat dextrin 3 gram/3.5 gram oral 1 packet PO DAILY #28 ea 07/26/21 powder packet (Benefiber Clear Sugar Free(dextrin)) fluticasone 250 mcg-salmeterol 50 1 inh inhalation BID 30 days #1 ea 08/04/21 mcg/dose blistr powdr for inhalation (Advair Diskus) furosemide 20 mg tablet (Lasix) 20 mg PO DAILY #90 tabs 09/30/21 meloxicam 7.5 mg tablet 15 mg (2 x 7.5 mg) PO DAILY PRN 05/04/23 pain #30 tabs prednisone 20 mg tablet 20 mg PO DAILY 7 days #7 tabs 05/25/23 Allergies Allergy/AdvReac Type Severity Reaction Status Date / Time No Known Allergies Allergy Verified 05/04/23 10:54 Review of Systems Constitutional: Constitutional: Reports no additional constitutional complaints, Denies chills, Denies fever(s) and Denies night sweats Eyes: Eyes: Reports no additional eye complaints, Denies blurry vision, Denies change in vision, Denies diplopia, Denies eye discharge, Denies loss of vision and Denies eye pain ENT: Denies dizziness Cardiovascular: Cardiovascular: Reports no additional cardiovascular complaints, Denies chest pain, Denies lightheadedness, Denies Loss of Consciousness and Denies dyspnea Respiratory: Respiratory: Reports no additional respiratory complaints and Denies dyspnea Gastrointestinal: Gastrointestinal: Reports no additional gastrointestinal complaints, Denies abdominal pain, Denies melena, Denies hematochezia, Denies change in bowel habits and Denies change in stool character Genitourinary: Genitourinary: Denies hematuria, Denies urinary frequency, Denies dysuria, Denies urinary incontinence, Denies urinary hesitancy and Denies urinary urgency Musculoskeletal: Musculoskeletal: Reports no additional musculoskeletal complaints, Denies numbness and Denies tingling Integumentary/Breasts: Skin/Breast: Reports rash Neurologic: Denies dizziness, Denies loss of vision, Denies numbness and Denies tingling Psychiatric: Psychiatric: Reports no additional psychiatric complaints Endocrine: Endocrine: Reports no additional endocrine complaints Hematologic/Lymphatic: Hematologic/Lymphatic: Reports no additional hematologic/lymphatic complaints Allergic/Immunologic: Allergic/Immunologic: Reports no additional allergic/immunologic complaints PMFSH Past Medical History Attestation statement: The following information was validated with the patient. Source: old records reviewed and nursing notes reviewed Medical History Hx of renal calculi Hx of migraine headaches Elevated cholesterol Asthma HTN (hypertension) Surgical History History of pterygium excision Hx of oophorectomy Hx of dilation and curettage Hx of hemorrhoidectomy Hx of lithotripsy H/O colonoscopy Family History Family History Mother HTN (hypertension) Cancer Family/Other Cancer HTN (hypertension) Social History Social History Household Members: None Alcohol intake: never Patient Tobacco Use Status: Former Tobacco user Years Smoked: 15 +/- Advance Directives: No Advance Directives Information Provided: No Current occupational status: disabled Physical Exam ED Vital Signs: Vital Signs - 24 hr 05/25/23 17:17 Temperature 97.1 F Pulse Rate 101 H Respiratory Rate 20 Blood Pressure 197/102 H Pulse Oximetry 98 Oxygen Delivery Method Room Air BMI result Body Mass Index 48.5 Const General: cooperative, no acute distress, alert and awake Nutritional Appearance: well nourished Orientation/consciousness: patient oriented x3 Limitations: no limitations [facility] Head: Yes normal to inspection and Yes atraumatic Ears: hearing grossly normal bilaterally and external ears normal General nose exam: Normal external nose present, no nasal discharge noted and no epistaxis Face and sinus: Yes normal facial exam, No abrasion and No laceration Mouth: Normal oral and palatal mucosa present, no drooling and no muffled voice Eyes General: appearance normal, both eyes and all related structures Periorbital: periorbital findings normal Eyelids: Yes eyelids normal Conjunctivae: conjunctivae normal Pupils: Equal, round and reactive pupils present EOM: EOMs intact bilaterally Neck Neck: Yes normal visual inspection, Yes full ROM and Yes no lymphadenopathy Chest Chest palpation & inspection: normal inspection of the chest Resp Effort & Inspection: normal respiratory effort and able to speak in complete sentences GI Inspection: Yes normal to inspection Skin Other: multiple urticaria on chest and abdomen Neuro General: patient oriented x3 and moves all extremities Cranial nerves: Yes Equal, round and reactive pupils present Cognition (Neuro): normal cognition Motor exam (neuro): 5/5 motor strength present throughout Sensory Exam: Normal double simultaneous stimulation for sensation Coordination: vxyzyw-zq-dwph test normal Extrem General: Yes normal to inspection, Yes full ROM and Yes capillary refill normal Psych Appearance: grossly normal Mental Status: mental status grossly normal Affect: normal affect Attitude: cooperative Thought process: Normal thought process present Thought content: Normal thought content present Insight: Good insight present (Psych) Course Course Course Narrative: This is an RME: Additional HPI, ROS, PE not included below will be deferred to primary provider. 58 yo F presents w/ rash to chest, breast, abdomen X 3 days reports the rash hurts and is very itchy. Plan- [facility] appropriate Medications Administered Discontinued Medications Generic Name Dose Route Start Last Admin Trade Name Freq PRN Reason Stop Dose Admin Methylprednisolone Sodium Succinate 60 mg 05/25/23 18:18 05/25/23 18:36 Methylprednisolone Sod Succ 125 Mg/2 Ml Vial IM 05/25/23 18:19 60 mg ONCE ONE Administration Medical Decision Making Medical Decision Making [facility] Narrative: Patient is a 58 year old assigned female at with a history of HTN presenting to the emergency department today with urticaria. Patient's physical exam showed multiple urticaria to the chest and abdomen. I explained my physical exam findings to the patient. I answered all questions asked by the patient. Patient received IM Solu-medrol which she stated helped her symptoms significantly. I stressed the importance of the patient taking her medication as prescribed. I stressed the importance of the patient following up with her primary care provider. I stressed the importance of the patient returning to the emergency department immediately if her symptoms were to worsen or if she were to develop any dizziness, shortness of breath, difficulty breathing, chest pain, blurry vision, loss of vision, nausea, vomiting, abdominal pain, fever, chills, back pain, or any other complaints. Patient verbalized agreement and understanding with this treatment plan and discharge. Differential Diagnosis Differential Diagnoses: The differential diagnosis associated with the presentation includes Idiopathic urticaria Allergic reaction Rash Prescription Management I considered prescription management with: Other (patient prescribed corticosteroids.) Chronic Conditions Patient?s care impacted by: Hypertension Discharge Plan Discharge Clinical Impression: Acute idiopathic urticaria Patient Disposition: Home, Self-Care Instructions: Urticaria (ED) Additional Instructions: Follow up with your primary care provider. Return to the emergency department immediately if your symptoms worsen or if you develop any dizziness, shortness of breath, difficulty breathing, chest pain, blurry vision, loss of vision, nausea, vomiting, abdominal pain, fever, chills, back pain, or any other complaints. Mark un seguimiento con rojas proveedor de atenci?n primaria. Regrese al departamento de emergencias inmediatamente si malcolm s?ntomas empeoran o si presenta mareos, dificultad para respirar, dificultad para respirar, dolor en el pecho, visi?n borrosa, p?rdida de la visi?n, n?useas, v?mitos, dolor abdominal, fiebre, escalofr?os, dolor de espalda o cualquier otras quejas. Prescriptions: New prednisone 20 mg tablet 20 mg PO DAILY 7 Days Qty: 7 0RF No Action albuterol sulfate 2.5 mg /3 mL (0.083 %) solution for nebulization 2.5 mg inhalation TID (DME) blood pressure test kit-large Kit See Rx Instructions .ROUTE DAILY Qty: 1 Rx Instructions: As directed diclofenac sodium 1 % gel 1 ea topical DAILY paroxetine HCl 10 mg tablet 10 mg PO DAILY albuterol sulfate 90 mcg/actuation HFA aerosol inhaler 2 puff inhalation Q4-6H PRN (Reason: Shortness Of Breath Or Wheezing) simvastatin 20 mg tablet 20 mg PO DAILY cholecalciferol (vitamin D3) 25 mcg (1,000 unit) capsule 25 mcg PO DAILY loratadine 10 mg capsule 10 mg PO DAILY Trulance 3 mg tablet 3 mg PO DAILY Qty: 30 3RF Benefiber Clear SF (dextrin) 3 gram/3.5 gram powder in packet 1 packet PO DAILY Qty: 28 5RF Rx Instructions: mix into at least 4 oz water or juice before administering furosemide [Lasix] 20 mg tablet 20 mg PO DAILY Qty: 90 3RF fluticasone propion-salmeterol [Advair Diskus] 250-50 mcg/dose blister with device 1 inh inhalation BID 30 Days Qty: 1 6RF iekzetffua-kepqdcplqahyl-teqz 50-325-40 mg tablet 1 tab PO Q4H propranolol 80 mg capsule,extended release 24 hr 80 mg PO DAILY losartan 25 mg tablet 25 mg PO DAILY meloxicam 7.5 mg tablet 15 mg PO DAILY PRN (Reason: pain) Qty: 30 2RF Referrals: [facility] [Primary Care Provider] - Interventions: ED Discharge Assessment Last Done: 05/25/23 18:34 Discharge Date/Time: 05/25/23 18:40 Print Language: Serbian
[2023-05-25] MEDS: methylPREDNISolone Sod Succ 125 MG/2 ML VIAL 60 MG IM (18:36)
== END 2023-05-25 18:40 | disposition home or self-care (01) ==
PROVIDERS: Emergency Provider Student in an Organized Health Care Education/Training Program
DX: L50.1 Idiopathic urticaria (principal); Z87.891 Personal history of nicotine dependence; Z79.899 Other long term (current) drug therapy
CPT/HCPCS: 96372; 99282; 99284; J2930

== ENCOUNTER 2023-11-08 13:23 | Outpatient (AMB) | payer OTHER, SELFPAY ==
--- NOTE | 2023-11-08 13:26 | MHC.OFFVIS ---
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
--- NOTE | 2023-11-08 13:26 | MHC.OFFVIS ---
Intake Vital Signs 11/08/23 13:28 Height 5 ft 4 in Weight 276 lb 10.882 oz BMI 47.5 BP 146/76 H Blood Pressure Location Lt brachial Position Sitting Pulse 94 Pulse Source Pulse Oximeter Pulse Oximetry (%) 97 Oxygen Delivery Method Room Air Intake Visit Reasons: dyspnea Allergies No Known Allergies Allergy (Verified 11/08/23 13:33) PFSH Medical History Hx of renal calculi Hx of migraine headaches Elevated cholesterol Asthma HTN (hypertension) Surgical History History of pterygium excision Hx of oophorectomy Hx of dilation and curettage Hx of hemorrhoidectomy Hx of lithotripsy H/O colonoscopy Family History Mother HTN (hypertension) Cancer Family/Other Cancer HTN (hypertension) Social History Household Members: None Alcohol intake: never Patient Tobacco Use Status: Former Tobacco user Years 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
[2023-11-08 13:28] VITALS: BP 146/76; PULSE 94; O2SAT 97; BMI 47.5
--- NOTE | 2023-11-09 13:34 | A.OFFVIS_ITS ---
Vital Signs 11/08/23 13:28 11/09/23 13:35 Height 5 ft 4 in Weight 276 lb 10.882 oz BMI 47.5 47.5 BP 146/76 H Blood Pressure Location Lt brachial Position Sitting Pulse 94 Pulse Source Pulse Oximeter Pulse Oximetry (%) 97 Oxygen Delivery Method Room Air Intake Visit Reasons: dyspnea Allergies No Known Allergies Allergy (Verified 11/08/23 13:33) HPI HPI dyspnea: Details: 58-year-old lady with underlying obesity, followed for moderate persistent asthma and SUJATHA on CPAP. She has been using Advair and albuterol MDI/nebs with reasonable control of her underlying asthma symptoms. She does complain unrestful sleep and morning headaches, however patient has not been fully compliant with her CPAP therapy. She is interested in trying a different CPAP mask. [facility] Medical History Hx of renal calculi Hx of migraine headaches Elevated cholesterol Asthma HTN (hypertension) Surgical History History of pterygium excision Hx of oophorectomy Hx of dilation and curettage Hx of hemorrhoidectomy Hx of lithotripsy H/O colonoscopy Family History Mother HTN (hypertension) Cancer Family/Other Cancer HTN (hypertension) Social History Household Members: None Alcohol intake: never Patient Tobacco Use Status: Former Tobacco user Years Smoked: 15 +/- Current occupational status: disabled Review of Systems Const Denies daytime sleepiness, Denies excessive sweating, Denies fatigue, Denies fever(s), Denies lethargy, Denies malaise, Denies night sweats, Denies snoring and Denies weight loss Eyes Denies blurry vision and Denies itchy eyes ENT Denies nasal congestion, Denies post nasal drip, Denies sinus pain, Denies sinus pressure and Denies other ( Thrush) Card Denies chest pain, Denies pedal edema, Denies dyspnea, Denies orthopnea and Denies paroxysmal nocturnal dyspnea Resp Denies cough, Denies hemoptysis, Denies excessive phlegm production, Denies dyspnea, Denies snoring and Denies wheezing GI Denies abdominal pain and Denies heartburn Musc Denies myalgias, Denies arthralgias and Denies joint swelling Skin/Breast Denies rash Neuro Denies memory loss and Denies seizure-like activity Psych Denies abnormal sleep pattern, Denies anxiety and Denies memory loss Endo Denies excessive sweating, Denies fatigue and Denies heat intolerance Gagandeep/Lymph Denies easy bruising Aller/Immun Denies itchy eyes, Denies seasonal rhinorrhea and Denies wheezing Physical Exam Vital Signs: Last Vital Signs Pulse 94 11/08/23 13:28 BP 146/76 H 11/08/23 13:28 Pulse Ox 97 11/08/23 13:28 Oxygen Delivery Method Room Air 11/08/23 13:28 BMI result Body Mass Index 47.5 Const General: no acute distress and alert Nutritional Appearance: not obese Orientation/consciousness: Other orientation findings ( oriented) HEENT Head: Yes atraumatic Eyes General: appearance normal, both eyes and all related structures Sclerae: sclerae normal EOM: EOMs intact bilaterally Neck Neck: Yes supple Lymphatic: no lymphadenopathy noted Resp Effort & Inspection: normal respiratory effort and no use of accessory muscles Auscultation: clear to auscultation bilaterally Cardio Rate: regular rate Rhythm: regular rhythm Heart sounds: no gallops, no murmurs and no rubs Skin General skin exam: other ( warm) Extrem General: No clubbing, No cyanosis and No edema Assessment & Plan Assessment & Plan (1) Asthma: Code(s): J45.909 - Unspecified asthma, uncomplicated Category: Medical Plan: Well controlled on Advair and albuterol MDI/nebs. Continue current regimen. (2) SUJATHA (obstructive sleep apnea): Code(s): G47.33 - Obstructive sleep apnea (adult) (pediatric) Category: Medical Plan: Not fully compliant with CPAP therapy secondary to feelings of her sinuses getting pressurized, will try under the nose mask.
[2023-11-09 13:35] VITALS: BMI 47.5
== END 2023-11-08 13:50 | disposition home or self-care (01) ==
PROVIDERS: Visit Provider Internal Medicine Pulmonary Disease
DX: J45.909 Unspecified asthma, uncomplicated (principal); G47.33 Obstructive sleep apnea (adult) (pediatric)
CPT/HCPCS: 99214

== ENCOUNTER → 2023-11-08 13:23 | Outpatient (BNVA) | payer OTHER, SELFPAY | PROVIDERS: Visit Provider Internal Medicine Pulmonary Disease | DX: J45.909 Unspecified asthma, uncomplicated (principal); G47.33 Obstructive sleep apnea (adult) (pediatric) | CPT/HCPCS: 99212 ==

== ENCOUNTER 2024-02-12 14:29 | Outpatient (AMB) | payer OTHER, SELFPAY ==
[2024-02-12 14:40] VITALS: BP 155/77; PULSE 94; O2SAT 97; BMI 47.1
--- NOTE | 2024-02-12 14:40 | MHC.OFFVIS ---
Vital Signs 02/12/24 14:40 Height 5 ft 4 in Weight 274 lb 7.608 oz BMI 47.1 BP 155/77 H Blood Pressure Location Lt brachial Position Sitting Pulse 94 Pulse Source Doppler Pulse Oximetry (%) 97 Oxygen Delivery Method Room Air Intake Visit Reasons: dyspnea Record Clerk Required: Yes Record Clerk Name: Miranda Carroll [place] Allergies No Known Allergies Allergy (Verified 11/08/23 13:33) HPI HPI dyspnea: Details: 59-year-old lady with underlying obesity, followed for moderate persistent asthma and SUJATHA on CPAP. She has been using Advair and albuterol MDI/nebs with reasonable control of her underlying asthma symptoms. Patient has been using her CPAP with reasonable control her underlying SUJATHA symptoms. She denies recent exacerbations. [facility] Medical History Hx of renal calculi Hx of migraine headaches Elevated cholesterol Asthma HTN (hypertension) Surgical History History of pterygium excision Hx of oophorectomy Hx of dilation and curettage Hx of hemorrhoidectomy Hx of lithotripsy H/O colonoscopy Family History Mother HTN (hypertension) Cancer Family/Other Cancer HTN (hypertension) Social History Household Members: None Alcohol intake: never Patient Tobacco Use Status: Former Tobacco user Years Smoked: 15 +/- Current occupational status: disabled Review of Systems Const Denies daytime sleepiness, Denies excessive sweating, Denies fatigue, Denies fever(s), Denies lethargy, Denies malaise, Denies night sweats, Denies snoring and Denies weight loss Eyes Denies blurry vision and Denies itchy eyes ENT Denies nasal congestion, Denies post nasal drip, Denies sinus pain, Denies sinus pressure and Denies other ( Thrush) Card Denies chest pain, Denies pedal edema, Denies dyspnea, Denies orthopnea and Denies paroxysmal nocturnal dyspnea Resp Denies cough, Denies hemoptysis, Denies excessive phlegm production, Denies dyspnea, Denies snoring and Denies wheezing GI Denies abdominal pain and Denies heartburn Musc Denies myalgias, Denies arthralgias and Denies joint swelling Skin/Breast Denies rash Neuro Denies memory loss and Denies seizure-like activity Psych Denies abnormal sleep pattern, Denies anxiety and Denies memory loss Endo Denies excessive sweating, Denies fatigue and Denies heat intolerance Gagandeep/Lymph Denies easy bruising Aller/Immun Denies itchy eyes, Denies seasonal rhinorrhea and Denies wheezing Physical Exam Vital Signs: Last Vital Signs Pulse 94 02/12/24 14:40 BP 155/77 H 02/12/24 14:40 Pulse Ox 97 02/12/24 14:40 Oxygen Delivery Method Room Air 02/12/24 14:40 BMI result Body Mass Index 47.1 Const General: no acute distress and alert Nutritional Appearance: obese Orientation/consciousness: Other orientation findings ( oriented) HEENT Head: Yes atraumatic Eyes General: appearance normal, both eyes and all related structures Sclerae: sclerae normal EOM: EOMs intact bilaterally Neck Neck: Yes supple Lymphatic: no lymphadenopathy noted Resp Effort & Inspection: normal respiratory effort and no use of accessory muscles Auscultation: clear to auscultation bilaterally Cardio Rate: regular rate Rhythm: regular rhythm Heart sounds: no gallops, no murmurs and no rubs Skin General skin exam: other ( warm) Extrem General: No clubbing, No cyanosis and No edema Assessment & Plan Assessment & Plan (1) SUJATHA (obstructive sleep apnea): Code(s): G47.33 - Obstructive sleep apnea (adult) (pediatric) Category: Medical Plan: Well controlled on current CPAP therapy. Continue CPAP therapy. (2) Asthma: Code(s): J45.909 - Unspecified asthma, uncomplicated Category: Medical Plan: Well controlled on Advair, albuterol MDI/nebs. Continue current regimen. Coding Level of Care Code Est Pt Level 4 (72228) Diagnoses SUJATHA (obstructive sleep apnea) G47.33 Asthma J45.909
== END 2024-02-12 14:54 | disposition home or self-care (01) ==
PROVIDERS: PCP Nurse Practitioner Primary Care; Visit Provider Internal Medicine Pulmonary Disease
DX: G47.33 Obstructive sleep apnea (adult) (pediatric) (principal); J45.909 Unspecified asthma, uncomplicated
CPT/HCPCS: 99214

== ENCOUNTER → 2024-02-12 14:29 | Outpatient (BNVA) | payer OTHER, SELFPAY | PROVIDERS: PCP Nurse Practitioner Primary Care; Visit Provider Internal Medicine Pulmonary Disease | DX: G47.33 Obstructive sleep apnea (adult) (pediatric) (principal); J45.909 Unspecified asthma, uncomplicated | CPT/HCPCS: 99212 ==

== ENCOUNTER 2024-02-16 11:57 | Outpatient (REF) | payer OTHER, SELFPAY ==
[2024-02-16 13:25] LABS: Estimated Average Glucose 117 mg/dL; Hemoglobin A1C 133.6885 umol/L; Hemoglobin A1c % 5.7 % (<6.0)
[2024-02-16 13:27] LABS: Alanine Aminotransferase 8 U/L (0-31); Albumin Level 4.1 g/dL (3.5-5.0); Alkaline Phosphatase 85 U/L (39-117); Anion Gap 15 (12-20); Aspartate Amino Transferase 12 U/L (5-31); Bilirubin Total 0.3 mg/dL (0.0-1.0); Blood Urea Nitrogen 12 mg/dL (9-16); Calcium 9.5 mg/dL (8.4-10.2); Carbon Dioxide 24 mmol/L (22-29); Chloride 105 mmol/L (96-108); Cholesterol 206 mg/dL (<200); Estimated Glomerular Filt Rate > 60; Glucose Random 95 mg/dL (60-115); HDL Cholesterol 56 mg/dL (>40); LDL Cholesterol Calculated 132 mg/dL (<100); Potassium 4.2 mmol/L (3.3-5.1); Sodium 140 mmol/L (135-145); Total Protein 7.7 g/dL (6.5-8.0); Triglycerides 90 mg/dL (<150)
== END 2024-02-16 11:58 | disposition home or self-care (01) ==
LOC: HO.HHCL 11:57
PROVIDERS: Visit Provider Nurse Practitioner Primary Care
DX: I10 Essential (primary) hypertension (principal); E78.5 Hyperlipidemia, unspecified; R73.02 Impaired glucose tolerance (oral)
CPT/HCPCS: 36415; 80053; 80061; 83036

== ENCOUNTER 2024-02-21 15:15 | Outpatient (REF) | payer OTHER, SELFPAY ==
--- NOTE | ~2024-02-21 | US_ITS ---
EXAMINATION: US VENOUS ULTRASOUND WITH DOPPLER LOWER EXTREMITY, BILATERAL CLINICAL INFORMATION: Bilateral lower extremities edema, rule out Douglas's cyst COMPARISON: 01/17/2023 left lower extremity TECHNIQUE: Ultrasound of the deep veins is performed from the hip to the calf with compression sonography and color and pulse Doppler assessment. Spectral analysis with color-flow imaging is performed. FINDINGS: RIGHT: There is normal venous compression and respiratory variation and augmented flow. The visualized common femoral vein, superficial femoral vein, profunda femoral vein, popliteal vein, and the trifurcation region shows no evidence of deep venous thrombosis. There is no significant popliteal fossa cyst. LEFT: There is normal venous compression and respiratory variation and augmented flow. The visualized common femoral vein, superficial femoral vein, profunda femoral vein, popliteal vein, and the trifurcation region shows no evidence of deep venous thrombosis. There is 4.0 x 1.0 x 1.5 cm popliteal fossa cyst. If the patient's symptoms persist, followup ultrasound in 5 days 7 days might be of value to exclude proximal propagation from a non-visualized calf vein. US/US venous duplex LE BI IMPRESSION: No DVT demonstrated in the right and left lower extremity. Left Douglas's cyst
== END 2024-02-21 15:16 | disposition home or self-care (01) ==
LOC: HO.US 15:15
PROVIDERS: PCP Nurse Practitioner Primary Care; Visit Provider Nurse Practitioner Primary Care
DX: R60.0 Localized edema (principal)
CPT/HCPCS: 93970

== ENCOUNTER 2024-07-18 08:41 | Outpatient (REF) | payer OTHER, SELFPAY ==
--- NOTE | ~2024-07-18 | XR_ITS ---
EXAMINATION: XR KNEE LEFT CLINICAL INFORMATION: Pain in left knee M25.562. COMPARISON: XR Left knee 05/04/2023 TECHNIQUE: Three views of the left knee. FINDINGS: Prostate 10 mm lateral subluxation of the knee is again noted. Marked medial compartment joint space narrowing and moderate medial compartment osteophytosis is visualized. Mild lateral compartment joint space narrowing and marked lateral compartment osteophytosis is present. Moderate patellofemoral osteophytosis. No joint effusion. Normal bone mineralization. No fractures. XR/XR knee LT 3V IMPRESSION: Advanced multilevel tricompartmental osteoarthritis of the left knee and chronic lateral subluxation of the left knee. Findings are grossly unchanged compared with 05/04/2023. Electronically signed by: Fabian Corbett MD 08/22/2024 02:43 PM JOSE IYER
--- OUTSIDE RECORDS SUMMARY | 2024-07-19 08:55 | XMS_ITS | Data Portability ---
Author Organization [employer] [facility], [place] [employer] Address [address] [place] [address] Care Team Providers Care Patient Svcs Mgr Name Role Phone [facility] OTHER [facility] OTHER Assessment Encounter Date Assessment Date Assessment LastModified by Organization Details LastModified Time 06/06/2024 06/06/2024 I have reviewed and agree with the assessment and plan as documented by the supply aide. I provided real-time medical direction for this encounter and was immediately available to provide additional phone-based assistance as needed. History as noted in EMR and by supply aide. I would add / emphasize: Patient seen [...] 30 mg/mL injection solution 2023 024 pallfather [id number], [address] [place], [place], [phone], 10:02:53 Patient TargetsNo targets recorded. Patient InstructionsNo [...] Diagnosis/Indication Diagnosis SNOMED-CT Code Diagnosis ICD10 Code [id number] Aubrey Duron MD Main - [facility] [address] [place] [address] 06/06/2024 15:29:58 06/08/2024 13:08:51 Pain of knee region [id number] M25.569 Health Concerns Section Related Observation LastModified by Organization Simona zaman LastModified Time None Recorded Concern Status LastModified by Organization Details LastModified Time None Recorded Advance Directives Directive None Recorded Payers Encounter Date Sequence Insurance Name Policy Number Policy Griffith Covered Member ID Griffith Member ID Guarantor Name 06/06/2024 1 [facility] - DOS ON OR AFTER 2022 - DUAL ELIGIBLE - GROUP HOME OPTIONS AND ONE CARE (MEDICARE REPLACEMENT/ADV ANTAGE - HMO) Valerie Alford [id number] Valerie Alford Notes Date Note Type Note [...] Hypertension, Hysterectomy, Asthma, Migraine Comments: Referral taken Balance Screwhead Polisher [id number]. Patient calling in to place a referral [...] .................. .................. .................. .................. .................. .................. ............... Service Desk Director Note From Timothy Burris: [id number] dispatched to the address listed above for the report of a female green party with knee swelling and pain. Patient [...] relief.Patient baseline vital signs obtained as noted. [facility] consulted and advised SC to administer 15mg Toradol IM to patient and withhold Ibuprofen for the rest of the day. [facility] advised that patient should increase Ibuprofen to 400mg 3 times a day and lastly follow up with her PCP regarding the issue. 15mg Toradol IM administered to patient in left deltoid without incident. Red flags were discussed with patient. .................. .................. .................. .................. .................. .................. .................. ............... [facility] Consulted: Aubrey Duron .................. .................. .................. .................. .................. .................. .................. ............... Disposition: Fulfilled Aubrey Duron MD [address] [facility], [place], [address], [employer] 06/07/2024 10:03:04 OBGyn Episode No OBEpisode recorded.
== END 2024-07-18 08:42 | disposition home or self-care (01) ==
LOC: HO.HOSX 08:41
PROVIDERS: Visit Provider Orthopaedic Surgery
DX: M17.12 Unilateral primary osteoarthritis, left knee (principal)
CPT/HCPCS: 73562; 99212

== ENCOUNTER 2024-07-18 09:33 | Outpatient (AMB) | payer OTHER, SELFPAY ==
--- OUTSIDE RECORDS SUMMARY | 2024-07-18 09:35 | XMS_ITS | Continuity of Care Document ---
Author Organization [employer], [place] in - [employer] Address [address] [place] [address] Care Team Providers Care Network Operations Project Manager Name Role Phone [facility] OTHER [facility] OTHER Assessment Encounter Date Assessment Date Assessment LastModified by Organization Details LastModified Time 06/06/2024 06/06/2024 I have reviewed and agree with the assessment and plan as documented by the large animal husbandry technician. I provided real-time medical direction for this encounter and was immediately available to provide additional phone-based assistance as needed. History as noted in EMR and by large animal husbandry technician. I would add / emphasize: Patient seen for atraumatic L knee pain. has been seen in ED and had US to r/o DVT which was neg per report. Pain exacerbated by movement. No fevers or chills. Remains ambulatory. Taking 400mg ibuprofen at night for pain. AVSS well appearing and per medic no deformity erythema or warmth to knee. Suspect OA but will require PCP f/u for further eval, and ? PT, Ortho, MRI. In the meantime discussed plan to trial ibuprofen 400mg TID w/ meals to see if this helps. Patient would benefit from PCP f/u shortly. Gave ketorolac 15mg and advised no more NSAIDS for rest of day. pallfather Not available 06/07/2024 10:02:41 Plan of Treatment Reminders Order Date Submit Date Provider Last Modified By Organization Details Last Modified Time Details Appointments None recorded. Lab None recorded. Referral None recorded. Procedures None recorded. Surgeries None recorded. Imaging None recorded. Medication Orders ketorolac 30 mg/mL injection solution 2023 024 pallfather [id number], [address] [facility], [place], [place], [phone], 10:02:53 Patient TargetsNo targets recorded. Patient InstructionsNo instructions recorded. Reason for Referral None Reported. Medical Equipment None Reported. Allergies No known drug allergies Medications Name Sig Start Date Stop Date Status Note LastModified by Organization Details LastModified Time losartan 50 mg tablet TAKE 1 TABLET BY MOUTH EVERY DAY active Not Available Not Available No t Available albuterol sulfate 2.5 mg/3 mL (0.083 %) solution for nebulization USE 3 ML VIA NEBULIZER THREE TIMES DAILY active Not Available Not Available No t Available simvastatin 20 mg tablet TAKE 1 TABLET BY MOUTH EVERY DAY IN THE EVENING active Not Available Not Available No t Available losartan 25 mg tablet active Not Available Not Available No t Available hydrochloroth iazide 25 mg tablet TAKE 1 TABLET BY MOUTH EVERY DAY active Not Available Not Available No t Available albuterol sulfate HFA 90 mcg/actuation aerosol inhaler INHALE 2 PUFFS BY MOUTH EVERY 4 HOURS NEEDED active Not Available Not Available No t Available butalbital-ac etaminophen-c affeine 50 mg-300 mg-40 mg capsule TAKE 1 CAPSULE BY MOUTH EVERY 6 HOURS NEEDED FOR HEADACHE. DO NOT EXCEED 8 TABLETS / MO active Not Available Not Available No t Available Wixela Inhub 100 mcg-50 mcg/dose powder for inhalation INHALE 1 PUFF BY MOUTH EVERY 12 HOURS active Not Available Not Available No t Available Vitals Date Recorded Respiratory rate Oxygen saturation Oxygen saturation in Arterial blood by Pulse oximetry Heart rate Systolic blood pressure Diastolic blood pressure Provider Name and Address Organization Details Last Updated DateTime 4 18 /min 99 % 99 % 95 /min 150 mm[Hg] 90 mm[Hg] Not Available [facility] - production 4 15:30:17 Social History None recorded. Functional Status None recorded. Mental Status None recorded. Family History Nothing Reported. Medical History No medical history recorded. Gynecological HistoryNo gynecological history recorded. Obstetrics History GPAL:G 0 P 0 0 0 0 Past Encounters Encounter ID Performer Location Encounter Start Date Encounter Closed Date Diagnosis/Indication Diagnosis SNOMED-CT Code Diagnosis ICD10 Code [id number] Aubrey Duron MD Main - [facility] [address] [place] [phone] 06/06/2024 15:29:58 06/08/2024 13:08:51 Pain of knee region 2892487748 M25.569 Health Concerns Section Related Observation LastModified by Organization Detai ls LastModified Time None Recorded Concern Status LastModified by Organization Details LastModified Time None Recorded Payers Encounter Date Sequence Insurance Name Policy Number Policy Griffith Covered Member ID Griffith Member ID Guarantor Name 06/06/2024 1 [facility] - DOS ON OR AFTER 2022 - DUAL ELIGIBLE - USP OPTIONS AND ONE CARE (MEDICARE REPLACEMENT/ADV ANTAGE - HMO) Valerie Alford [id number] Valerie Alford Notes Date Note Type Note Provider Name and Address Organization Details Recorded Time 06/06/2024 text/html CRC Nurse Triage Notes (Alicia Adkins): Reason For Request: nurse came to pt's home and suggested [facility]. ER did sonogram on left leg previously, but nurse noticed more swelling and encouraged pt to get checked by us Chief Complaints: Leg pain/swelling PMH: Hypertension, Hysterectomy, Asthma, Migraine Comments: Referral taken Apiculture Teacher [id number]. Patient calling in to place a referral as recommended by her VNA. Patient with left knee swelling x2 month. Around that time she was told there was a cyst, per patient they were suppose to follow up, but no one has called her. Patient endorses pain and a burning sensation to her knee, denies history of gout, denies redness or warmth to her knee, no open areas or drainage, denies chest pain or sob. She would like to be evaluated .................. .................. .................. .................. .................. .................. .................. ............... Beverage Server Note From Timothy Burris: [id number] dispatched to the address listed above for the report of a female alliance party with knee swelling and pain. Patient was found inside with son whom translated, alert and oriented x4, patent airway, breathing non labored and speaking in complete sentences, skin WPD in obvious distress. +/= Chest rise. -SOB, -CP, -NVD, -Trauma, -Fever. GCS 15. Abdomen non tender or distended. Patient has notable swelling to the left knee compared to the right, left knee is not hot to the touch or red, CMS intact. Patient reports that she has had chronic swelling/pain to the left knee for several months now, reports that she was at the hospital about 2 months ago in which they did a XRAY and stated that it was fine. Patient reports increasing swelling, pain, and difficulty ambulating. Patient advised that she has a appointment with her PCP on 06/16. Patient reports that she has been taking 400mg Ibuprofen at night time without relief.Patient baseline vital signs obtained as noted. [facility] consulted and advised SC to administer 15mg Toradol IM to patient and withhold Ibuprofen for the rest of the day. [facility] advised that patient should increase Ibuprofen to 400mg 3 times a day and lastly follow up with her PCP regarding the issue. 15mg Toradol IM administered to patient in left deltoid without incident. Red flags were discussed with patient. .................. .................. .................. .................. .................. .................. .................. ............... [facility] Consulted: Aubrey Duron .................. .................. .................. .................. .................. .................. .................. ............... Disposition: Fulfilled Aubrey Duron MD [address] [facility], [place], [address], [employer] 06/07/2024 10:03:04 OBGyn Episode No OBEpisode recorded.
--- NOTE | 2024-07-18 09:49 | A.OFFVIS_ITS ---
Vital Signs 07/18/24 09:52 Height 5 ft 4 in Weight 280 lb BMI 48.1 Intake Visit Reasons: OV- LT knee pain Intake Note: Valerie is a 59 year old female who presents with complaints of progressively worsening left knee pain. She describes her pain as sharp and severe in nature. Her pain has gotten worse over the last few years in spite of continued non operative treatments. She has failed the last 3 months of conservative treatment which has consisted of topical creams, a knee brace, Tylenol, anti- inflammatory medicines and physical therapy. She has had cortisone injections in the past which gave her minimal relief. She has not had a viscosupplementation injection. She wishes to hold off on surgery for as long as possible. Accompanied by: Sister Allergies No Known Allergies Allergy (Verified 07/18/24 09:53) Medication List - Last Reconciled 07/18/24 by Juan Antonio Wang MD albuterol sulfate 90 mcg/actuation 2 puffs inhalation Q4-6H PRN albuterol sulfate 2.5 mg inhalation TID blood pressure test kit-large As directed uadmdsdiev-dwsfxhufqxvyr-rzwg 50-325-40 mg 1 tab PO Q4H cholecalciferol (vitamin D3) 25 mcg PO DAILY diclofenac sodium 1% 1 ea topical DAILY fluticasone propion-salmeterol 250-50 mcg/dose (Advair Diskus) 1 inh inhalation BID 30 days furosemide (Lasix) 20 mg PO DAILY loratadine 10 mg PO DAILY losartan 25 mg PO DAILY meloxicam 15 mg (2 x 7.5 mg) PO DAILY PRN plecanatide (Trulance) 3 mg PO DAILY propranolol ER 80 mg PO DAILY simvastatin 20 mg PO DAILY wheat dextrin (Benefiber Clear Sugar Free(dextrin)) 1 packet PO DAILY PFSH Medical History Hx of renal calculi Hx of migraine headaches Elevated cholesterol Asthma HTN (hypertension) Surgical History History of pterygium excision Hx of oophorectomy Hx of dilation and curettage Hx of hemorrhoidectomy Hx of lithotripsy H/O colonoscopy Family History Mother HTN (hypertension) Cancer Family/Other Cancer HTN (hypertension) Social History Household Members: None Alcohol intake: never Patient Tobacco Use Status: Former Tobacco user Years Smoked: 15 +/- Current occupational status: disabled Physical Exam Vital Signs: BMI result Body Mass Index 48.1 Const Other: Well-nourished well-developed very friendly female awake alert and oriented x3 in no acute distress Extrem Other: Bilateral lower extremity examination shows good capillary refill, no skin lesions noted, normal sensation light touch Left knee examination shows a minimal effusion, palpable crepitus with range of motion, pain with range of motion, range motion from -3 degrees to 115 degrees, no instability Results Reviewed Results Reviewed: X-rays of the patient's left knee show joint space narrowing, subchondral sclerosis, no acute bony abnormalities Assessment & Plan Assessment & Plan (1) Osteoarthritis of left knee: Code(s): M17.12 - Unilateral primary osteoarthritis, left knee Category: Medical Plan Ms. Alford presents with progressively worsening left knee pain due to osteoarthritis. I had a lengthy discussion with the patient regarding the treatment options. She wishes to hold off on surgery for as long as possible. I agree with this plan. She has not gotten good relief from cortisone injections in the past. Thus, I will see whether or not her insurance company will cover a viscosupplementation injection. I will see her back once the injection is available. Feel free to call me at any time should questions regarding her orthopedic management arise. I spent 22 minutes in reviewing the patient's records and imaging studies, seeing the patient and documenting in the medical record. Orders: Orders XR knee LT 3V 07/18/24 M25.562 - Pain in left knee Coding Level of Care Code Est Pt Level 3 (09871) Complex EM visit Add On G2211 Diagnoses Osteoarthritis of left knee M17.12
[2024-07-18 09:52] VITALS: BMI 48.1
== END 2024-07-18 10:00 | disposition home or self-care (01) ==
PROVIDERS: PCP Nurse Practitioner Primary Care; Visit Provider Orthopaedic Surgery
DX: M17.12 Unilateral primary osteoarthritis, left knee (principal)
CPT/HCPCS: 99213; G2211

== ENCOUNTER 2024-07-25 10:26 | Outpatient (AMB) | payer OTHER, SELFPAY ==
--- NOTE | 2024-07-25 10:29 | A.OFFVIS_ITS ---
Vital Signs 07/25/24 10:30 Height 5 ft 4 in Weight 280 lb BMI 48.1 Intake Visit Reasons: Left knee pain Intake Note: Valerie is a 59 year old female who presents with complaints of progressively worsening left knee pain. She describes her pain as sharp and severe in nature. Her pain has gotten worse over the last few years in spite of continued non operative treatments. She has failed the last 3 months of conservative treatment which has consisted of topical creams, a knee brace, Tylenol, anti- inflammatory medicines and physical therapy. She has had cortisone injections in the past which gave her minimal relief. She has not had a viscosupplementation injection. She wishes to hold off on surgery for as long as possible. Ball Truing Machine Operator Required: Yes Ball Truing Machine Operator Language: Manager Channel Services: Ball Truing Machine Operator Present Ball Truing Machine Operator Name: MEKHI Espitia/ELIZABETH Allergies No Known Allergies Allergy (Verified 07/25/24 10:30) Medication List - Last Reconciled 07/25/24 by Juan Antonio Wang MD albuterol sulfate 90 mcg/actuation 2 puffs inhalation Q4-6H PRN albuterol sulfate 2.5 mg inhalation TID blood pressure test kit-large As directed cpymtgenzg-enaczwnkdrrjv-vhjq 50-325-40 mg 1 tab PO Q4H cholecalciferol (vitamin D3) 25 mcg PO DAILY diclofenac sodium 1% 1 ea topical DAILY fluticasone propion-salmeterol 250-50 mcg/dose (Advair Diskus) 1 inh inhalation BID 30 days furosemide (Lasix) 20 mg PO DAILY loratadine 10 mg PO DAILY losartan 25 mg PO DAILY meloxicam 15 mg (2 x 7.5 mg) PO DAILY PRN plecanatide (Trulance) 3 mg PO DAILY propranolol ER 80 mg PO DAILY simvastatin 20 mg PO DAILY wheat dextrin (Benefiber Clear Sugar Free(dextrin)) 1 packet PO DAILY PFSH Medical History Hx of renal calculi Hx of migraine headaches Elevated cholesterol Asthma HTN (hypertension) Surgical History History of pterygium excision Hx of oophorectomy Hx of dilation and curettage Hx of hemorrhoidectomy Hx of lithotripsy H/O colonoscopy Family History Mother HTN (hypertension) Cancer Family/Other Cancer HTN (hypertension) Social History Household Members: None Alcohol intake: never Patient Tobacco Use Status: Former Tobacco user Years Smoked: 15 +/- Current occupational status: disabled Physical Exam Vital Signs: BMI result Body Mass Index 48.1 Const Other: Well-nourished well-developed very friendly female awake alert and oriented x3 in no acute distress Extrem Other: Bilateral lower extremity examination shows good capillary refill, no skin lesions noted, normal sensation light touch Left knee examination shows a minimal effusion, palpable crepitus with range of motion, pain with range of motion, no instability Office Procedures AMB Joint Injection/Aspiration Joint Injection/Aspiration Primary Site: left knee Prep: site was prepped using aseptic technique Injected: 20 mg of (Euflexxa viscosupplementation) and 1% plain lidocaine Procedure: The patient tolerated the procedure well Coding - Large joint Procedure code (CPT) selection complete Results Reviewed Results Reviewed: X-rays of the patient's left knee taken previously show joint space narrowing, subchondral sclerosis, no acute bony abnormalities Assessment & Plan Assessment & Plan (1) Osteoarthritis of left knee: Code(s): M17.12 - Unilateral primary osteoarthritis, left knee Category: Medical (2) Left knee pain: Code(s): M25.562 - Pain in left knee Category: Medical Plan Ms. Alford presents with progressively worsening left knee pain due to degenerative joint disease. The risks and benefits of a series of Euflexxa viscosupplementation injections were discussed at length with the patient. The patient wished to proceed. She tolerated the 1st injection well. She will continue with her home exercise program. She will follow up next week as scheduled. Feel free to call me at any time should questions regarding her orthopedic management arise. I spent 22 minutes in reviewing the patient's records and imaging studies, seeing the patient and documenting in the medical record. Orders: Orders AMB Joint Injection/Aspiration Today M17.12 - Unilateral primary osteoarthritis, left knee Coding Level of Care Code Est Pt Level 3 (36847) Complex EM visit Add On G2211 Diagnoses Osteoarthritis of left knee M17.12 Left knee pain M25.562 CPT Codes Coding - Large joint: 78541 - Large joint ([id number])
[2024-07-25 10:30] VITALS: BMI 48.1
--- OUTSIDE RECORDS SUMMARY | 2024-07-25 10:45 | XMS_ITS | Continuity of Care Document ---
Author Organization [employer] [facility], [place] [employer] Address [address] [place] [address] Care Team Providers Care Member Service Representative Name Role Phone [facility] OTHER [phone] [facility] OTHER Assessment Encounter Date Assessment Date Assessment LastModified by Organization Details LastModified Time 06/06/2024 06/06/2024 I have reviewed and agree with the assessment and plan as documented by the clam grower. I provided real-time medical direction for this encounter and was immediately available to provide additional phone-based assistance as needed. History as noted in EMR and by clam grower. I would add / emphasize: Patient seen [...] 30 mg/mL injection solution 2023 024 pallfather [id number], [address] [facility], [place], [place], [phone], 10:02:53 Patient TargetsNo targets recorded. Patient InstructionsNo [...] Diagnosis/Indication Diagnosis SNOMED-CT Code Diagnosis ICD10 Code [id number] Aubrey Duron MD Main - [facility] [address] [place] [phone] 06/06/2024 15:29:58 06/08/2024 13:08:51 Pain of knee region [id number] M25.569 Health Concerns Section Related Observation LastModified by Organization Detai ls LastModified Time None Recorded Concern Status LastModified by Organization Details LastModified Time None Recorded Payers Encounter Date Sequence Insurance Name Policy Number Policy Griffith Covered Member ID Griffith Member ID Guarantor Name 06/06/2024 1 [facility] - DOS ON OR AFTER 2022 - DUAL ELIGIBLE - SENIOR LIVING OPTIONS AND ONE CARE (MEDICARE REPLACEMENT/ADV ANTAGE - HMO) Valerie Alford [id number] Valerie Alford Notes Date Note Type Note [...] Hypertension, Hysterectomy, Asthma, Migraine Comments: Referral taken Cardiac Catheterization Technologist [id number]. Patient calling in to place a referral [...] .................. .................. .................. .................. .................. .................. ............... Mink Rancher Note From Timothy Burris: [id number] dispatched to the address listed above for the report of a female constitution party with knee swelling and pain. Patient [...] relief.Patient baseline vital signs obtained as noted. [facility] consulted and advised SC to administer 15mg Toradol IM to patient and withhold Ibuprofen for the rest of the day. [facility] advised that patient should increase Ibuprofen to 400mg 3 times a day and lastly follow up with her PCP regarding the issue. 15mg Toradol IM administered to patient in left deltoid without incident. Red flags were discussed with patient. .................. .................. .................. .................. .................. .................. .................. ............... [facility] Consulted: Aubrey Duron .................. .................. .................. .................. .................. .................. .................. ............... Disposition: Fulfilled Aubrey Duron MD [address] [facility],[address], [place], [address], [employer] 06/07/2024 10:03:04 OBGyn Episode No OBEpisode recorded.
== END 2024-07-25 10:55 | disposition home or self-care (01) ==
PROVIDERS: PCP Nurse Practitioner Primary Care; Visit Provider Orthopaedic Surgery
DX: M17.12 Unilateral primary osteoarthritis, left knee (principal)
CPT/HCPCS: 20610; 99213

== ENCOUNTER → 2024-07-25 10:26 | Outpatient (BNVA) | payer OTHER, SELFPAY | PROVIDERS: PCP Nurse Practitioner Primary Care; Visit Provider Orthopaedic Surgery | DX: M17.12 Unilateral primary osteoarthritis, left knee (principal); M25.562 Pain in left knee | CPT/HCPCS: 20610; 99212; J2003; J7323 ==

== ENCOUNTER 2024-07-30 16:22 | Outpatient (REF) | payer OTHER, SELFPAY ==
--- OUTSIDE RECORDS SUMMARY | 2024-07-30 19:37 | XMS_ITS | Continuity of Care Document ---
Author Organization [employer] [facility], [place] in - [employer] Address [address] [place] [address] Care Team Providers Care Financial Solutions Advisor Name Role Phone [facility] OTHER [facility] OTHER Assessment Encounter Date Assessment Date Assessment LastModified by Organization Details LastModified Time 06/06/2024 06/06/2024 I have reviewed and agree with the assessment and plan as documented by the estimating engineer. I provided real-time medical direction for this encounter and was immediately available to provide additional phone-based assistance as needed. History as noted in EMR and by estimating engineer. I would add / emphasize: Patient seen [...] 30 mg/mL injection solution 2023 024 pallfather [id number], [address] [facility], [place], [place], [phone], 10:02:53 Patient TargetsNo targets recorded. Patient InstructionsNo [...] Diagnosis/Indication Diagnosis SNOMED-CT Code Diagnosis ICD10 Code Diagnosis Note [id number] Aubrey Duron MD Main - instED [address] [place] [phone] 0 06/06/2024 15:29:58 06/08/2024 13:08:51 Pain of knee region [id number] M25.569 Health Concerns Section Related Observation LastModified by Organization Simona zaman LastModified Time None Recorded Concern Status LastModified by Organization Details LastModified Time None Recorded Payers Encounter Date Sequence Insurance Name Policy Number Policy Griffith Covered Member ID Griffith Member ID Guarantor Name 06/06/2024 1 [facility] - DOS ON OR AFTER 2022 - DUAL ELIGIBLE - CUSTODIAL OPTIONS AND ONE CARE (MEDICARE REPLACEMENT/ADV ANTAGE - HMO) Valerie Alford [id number] Valerie Alford Notes Date Note Type Note [...] Hypertension, Hysterectomy, Asthma, Migraine Comments: Referral taken Online Editor [id number]. Patient calling in to place a referral [...] .................. .................. .................. .................. .................. .................. ............... Legal Consultant Note From Timothy Burris: [id number] dispatched to the address listed above for the report of a female republican with knee swelling and pain. Patient was [...] relief.Patient baseline vital signs obtained as noted. [facility] consulted and advised SC to administer 15mg Toradol IM to patient and withhold Ibuprofen for the rest of the day. [facility] advised that patient should increase Ibuprofen to 400mg 3 times a day and lastly follow up with her PCP regarding the issue. 15mg Toradol IM administered to patient in left deltoid without incident. Red flags were discussed with patient. .................. .................. .................. .................. .................. .................. .................. ............... [facility] Consulted: Aubrey Duron .................. .................. .................. .................. .................. .................. .................. ............... Disposition: Fulfilled Aubrey Duron MD [address] [facility],[address], [place], [address], [employer] - [employer] 06/07/2024 10:03:04 OBGyn Episode No OBEpisode recorded.
--- OUTSIDE RECORDS SUMMARY | 2024-07-30 19:37 | XMS_ITS | Data Portability ---
Author Organization [employer] [facility], [place] - [employer] Address [address] [place] [address] Care Team Providers Care Membership Sales Advisor Name Role Phone [facility] OTHER [phone] [facility] OTHER Assessment Encounter Date Assessment Date Assessment LastModified by Organization Details LastModified Time 06/06/2024 06/06/2024 I have reviewed and agree with the assessment and plan as documented by the designer. I provided real-time medical direction for this encounter and was immediately available to provide additional phone-based assistance as needed. History as noted in EMR and by designer. I would add / emphasize: Patient seen [...] 30 mg/mL injection solution 2023 024 pallfather [facility]01391, [address], [place], [phone], 10:02:53 Patient TargetsNo targets recorded. Patient InstructionsNo [...] SNOMED-CT Code Diagnosis ICD10 Code Diagnosis Note [id number] Aubrey Duron MD Main - [facility] [address] [place] [phone] 0 06/06/2024 15:29:58 06/08/2024 13:08:51 Pain of knee region [id number] M25.569 Health Concerns Section Related Observation LastModified by Organization Detai ls LastModified Time None Recorded Concern Status LastModified by Organization Details LastModified Time None Recorded Advance Directives Directive None Recorded Payers Encounter Date Sequence Insurance Name Policy Number Policy Griffith Covered Member ID Griffith Member ID Guarantor Name 06/06/2024 1 [facility] - DOS ON OR AFTER 2022 - DUAL ELIGIBLE - [facility] OPTIONS AND ONE CARE (MEDICARE REPLACEMENT/ADV ANTAGE - HMO) Valerie Alford [id number] Valerie Alford Notes Date Note Type Note [...] Hypertension, Hysterectomy, Asthma, Migraine Comments: Referral taken Survey Questionnaire Designer [id number]. Patient calling in to place a referral [...] .................. .................. .................. .................. .................. .................. ............... Flaking Roll Operator Note From Timothy Burris: [id number] dispatched to the address listed above for the report of a female democrat with knee swelling and pain. Patient was [...] relief.Patient baseline vital signs obtained as noted. [facility] consulted and advised SC to administer 15mg Toradol IM to patient and withhold Ibuprofen for the rest of the day. [facility] advised that patient should increase Ibuprofen to 400mg 3 times a day and lastly follow up with her PCP regarding the issue. 15mg Toradol IM administered to patient in left deltoid without incident. Red flags were discussed with patient. .................. .................. .................. .................. .................. .................. .................. ............... [facility] Consulted: Aubrey Duron .................. .................. .................. .................. .................. .................. .................. ............... Disposition: Fulfilled Aubrey Duron MD [address] [facility],[address], [place], [address], [employer] - GCD SystemeTUSHAR KAUFMAN 06/07/2024 10:03:04 OBGyn Episode No OBEpisode recorded.
[2024-07-31 11:10] LABS: HPV 16,18/45 See PAP report
== END 2024-07-30 16:23 | disposition home or self-care (01) ==
LOC: HO.HHCLNP 16:22
PROVIDERS: Visit Provider Advanced Practice Midwife
DX: Z12.4 Encounter for screening for malignant neoplasm of cervix (principal); Z11.51 Encounter for screening for human papillomavirus (HPV)
CPT/HCPCS: 87626; 88175

== ENCOUNTER 2024-08-01 12:50 | Outpatient (AMB) | payer OTHER, SELFPAY ==
--- NOTE | 2024-08-01 13:00 | MHC.OFFVIS ---
Vital Signs 08/01/24 13:02 Height 5 ft 4 in Weight 280 lb BMI 48.1 Intake Visit Reasons: Inj-Left Knee Euflexxa #2 Intake Note: Valerie is a 59 year old female who presents today for her second dose of Euflexxa on the left knee. She states that she got mild relief from the 1st injection. She continues with her home exercise program. Grain Farmworker Required: Yes Grain Farmworker Language: Addiction Specialist Services: Grain Farmworker Present Grain Farmworker Name: JOSIAH EspitiaAlvarez/ELIZABETH Allergies No Known Allergies Allergy (Verified 08/01/24 13:03) Medication List - Last Reconciled 08/01/24 by Juan Antonio Wang MD albuterol sulfate 90 mcg/actuation 2 puffs inhalation Q4-6H PRN albuterol sulfate 2.5 mg inhalation TID blood pressure test kit-large As directed cpihtnivij-gtqhbujvzhyuy-wywk 50-325-40 mg 1 tab PO Q4H cholecalciferol (vitamin D3) 25 mcg PO DAILY diclofenac sodium 1% 1 ea topical DAILY fluticasone propion-salmeterol 250-50 mcg/dose (Advair Diskus) 1 inh inhalation BID 30 days furosemide (Lasix) 20 mg PO DAILY loratadine 10 mg PO DAILY losartan 25 mg PO DAILY meloxicam 15 mg (2 x 7.5 mg) PO DAILY PRN plecanatide (Trulance) 3 mg PO DAILY propranolol ER 80 mg PO DAILY simvastatin 20 mg PO DAILY wheat dextrin (Benefiber Clear Sugar Free(dextrin)) 1 packet PO DAILY PFSH Medical History Hx of renal calculi Hx of migraine headaches Elevated cholesterol Asthma HTN (hypertension) Surgical History History of pterygium excision Hx of oophorectomy Hx of dilation and curettage Hx of hemorrhoidectomy Hx of lithotripsy H/O colonoscopy Family History Mother HTN (hypertension) Cancer Family/Other Cancer HTN (hypertension) Social History Household Members: None Alcohol intake: never Patient Tobacco Use Status: Former Tobacco user Years Smoked: 15 +/- Current occupational status: disabled Physical Exam Vital Signs: BMI result Body Mass Index 48.1 Extrem Other: Left knee examination shows a minimal effusion, palpable crepitus with range of motion, pain with range of motion, no instability Office Procedures AMB Joint Injection/Aspiration Joint Injection/Aspiration Primary Site: left knee Prep: site was prepped using aseptic technique Injected: 20 mg of (Euflexxa viscosupplementation) and 1% plain lidocaine Procedure: The patient tolerated the procedure well Coding 84047 - Large joint Procedure code (CPT) selection complete Results Reviewed Results Reviewed: X-rays of the patient's left knee taken previously show joint space narrowing, subchondral sclerosis, no acute bony abnormalities Assessment & Plan Assessment & Plan (1) Osteoarthritis of left knee: Code(s): M17.12 - Unilateral primary osteoarthritis, left knee Category: Medical Plan Ms. Alford presents with left knee pain due to osteoarthritis. The risks and benefits of a 2nd Euflexxa injection were discussed at length with the patient. The patient wished proceed. She tolerated the injection well. She will continue with her home exercise program. She will follow up for her 3rd injection as scheduled. Feel free to call me at any time should questions regarding her orthopedic management arise. Orders: Orders AMB Joint Injection/Aspiration Today M17.12 - Unilateral primary osteoarthritis, left knee Coding Level of Care Code Procedure Only Diagnoses Osteoarthritis of left knee M17.12 CPT Codes Coding - 00316 Large joint: 15664 - Large joint ([id number])
[2024-08-01 13:02] VITALS: BMI 48.1
--- OUTSIDE RECORDS SUMMARY | 2024-08-01 14:04 | XMS_ITS | Data Portability ---
Author Organization [employer] [facility], [place] - [employer] Address [address] [place] [address] Care Team Providers Care A/C Technician Name Role Phone [facility] OTHER [phone] [facility] OTHER Assessment Encounter Date Assessment Date Assessment LastModified by Organization Details LastModified Time 06/06/2024 06/06/2024 I have reviewed and agree with the assessment and plan as documented by the landscape maintenance internship. I provided real-time medical direction for this encounter and was immediately available to provide additional phone-based assistance as needed. History as noted in EMR and by landscape maintenance internship. I would add / emphasize: Patient seen [...] 30 mg/mL injection solution 2023 024 pallfather [email or web address]79026, [address], [place], [phone], 10:02:53 Patient TargetsNo targets recorded. Patient InstructionsNo [...] SNOMED-CT Code Diagnosis ICD10 Code Diagnosis Note [id number] Aubrey Duron MD Main - [facility] [address] [place] [phone] 06/06/2024 15:29:58 06/08/2024 13:08:51 Pain of knee region [id number] M25.569 Health Concerns Section Related Observation LastModified by Organization Detai ls LastModified Time None Recorded Concern Status LastModified by Organization Details LastModified Time None Recorded Advance Directives Directive None Recorded Payers Encounter Date Sequence Insurance Name Policy Number Policy Griffith Covered Member ID Griffith Member ID Guarantor Name 06/06/2024 1 [facility] - DOS ON OR AFTER 2022 - DUAL ELIGIBLE - PENITENTIARY OPTIONS AND ONE CARE (MEDICARE REPLACEMENT/ADV ANTAGE - HMO) Valerie Alford [id number] Valerie Alford Notes Date Note Type Note [...] Hypertension, Hysterectomy, Asthma, Migraine Comments: Referral taken Yard Hand [id number]. Patient calling in to place a referral [...] .................. .................. .................. .................. .................. .................. ............... Feed Blender Note From Timothy Burris: SC12 dispatched to [...] relief.Patient baseline vital signs obtained as noted. [facility] consulted and advised SC to administer 15mg Toradol IM to patient and withhold Ibuprofen for the rest of the day. [facility] advised that patient should increase Ibuprofen to 400mg 3 times a day and lastly follow up with her PCP regarding the issue. 15mg Toradol IM administered to patient in left deltoid without incident. Red flags were discussed with patient. .................. .................. .................. .................. .................. .................. .................. ............... [facility] Consulted: Aubrey Duron .................. .................. .................. .................. .................. .................. .................. ............... Disposition: Fulfilled Aubrey Duron MD [address] [facility],[address], [place], [address], [place] - [employer]TUSHAR KAUFMAN 06/07/2024 10:03:04 OBGyn Episode No OBEpisode recorded.
--- OUTSIDE RECORDS SUMMARY | 2024-08-01 14:04 | XMS_ITS | Continuity of Care Document ---
Author Organization [employer] [facility], [place] - [employer] Address [address] [place] [address] Care Team Providers Care Practice Performance Manager Name Role Phone [facility] OTHER [facility] OTHER Assessment Encounter Date Assessment Date Assessment LastModified by Organization Details LastModified Time 06/06/2024 06/06/2024 I have reviewed and agree with the assessment and plan as documented by the pump house operator. I provided real-time medical direction for this encounter and was immediately available to provide additional phone-based assistance as needed. History as noted in EMR and by pump house operator. I would add / emphasize: Patient seen [...] 30 mg/mL injection solution 2023 024 pallfather [facility]19640, [address] [facility], [place], [place], [phone], 10:02:53 Patient TargetsNo targets recorded. Patient InstructionsNo [...] SNOMED-CT Code Diagnosis ICD10 Code Diagnosis Note 13389 Aubrey Duron MD Main - [facility] [address] [place] [phone] 06/06/2024 15:29:58 06/08/2024 13:08:51 Pain of knee region [id number] M25.569 Health Concerns Section Related Observation LastModified by Organization Simona zaman LastModified Time None Recorded Concern Status LastModified by Organization Details LastModified Time None Recorded Payers Encounter Date Sequence Insurance Name Policy Number Policy Griffith Covered Member ID Griffith Member ID Guarantor Name 06/06/2024 1 [facility] - DOS ON OR AFTER 2022 - DUAL ELIGIBLE - GROUP HOME OPTIONS AND ONE CARE (MEDICARE REPLACEMENT/ADV ANTAGE - HMO) Valerie Alford [id number] Valerie Alford Notes Date Note Type Note [...] Hypertension, Hysterectomy, Asthma, Migraine Comments: Referral taken Video Game Script Writer [id number]. Patient calling in to place a referral [...] .................. .................. .................. .................. .................. .................. ............... Associate Software Application Engineer Note From Timothy Burris: SC12 dispatched to the address listed above for the report of a female libertarian with knee swelling and pain. Patient was [...] relief.Patient baseline vital signs obtained as noted. [facility] consulted and advised SC to administer 15mg Toradol IM to patient and withhold Ibuprofen for the rest of the day. [facility] advised that patient should increase Ibuprofen to 400mg 3 times a day and lastly follow up with her PCP regarding the issue. 15mg Toradol IM administered to patient in left deltoid without incident. Red flags were discussed with patient. .................. .................. .................. .................. .................. .................. .................. ............... [facility] Consulted: Aubrey Duron .................. .................. .................. .................. .................. .................. .................. ............... Disposition: Fulfilled Aubrey Duron MD [address] [facility],[address], [place], [address], [email or web address] 06/07/2024 10:03:04 OBGyn Episode No OBEpisode recorded.
== END 2024-08-01 13:16 | disposition home or self-care (01) ==
PROVIDERS: PCP Nurse Practitioner Primary Care; Visit Provider Orthopaedic Surgery
DX: M17.12 Unilateral primary osteoarthritis, left knee (principal)
CPT/HCPCS: 20610

== ENCOUNTER → 2024-08-01 12:50 | Outpatient (BNVA) | payer OTHER, SELFPAY | PROVIDERS: PCP Nurse Practitioner Primary Care; Visit Provider Orthopaedic Surgery | DX: M17.12 Unilateral primary osteoarthritis, left knee (principal) | CPT/HCPCS: 20610; J2003; J7323 ==

== ENCOUNTER 2024-08-08 10:13 | Outpatient (AMB) | payer OTHER, SELFPAY ==
--- NOTE | 2024-08-08 10:15 | A.OFFVIS_ITS ---
Vital Signs 08/08/24 10:18 Height 5 ft 4 in Weight 280 lb BMI 48.1 Intake Visit Reasons: Inj-Left Knee Euflexxa #3 Intake Note: Valerie is a 59 year old female who presents today for her third dose of Euflexxa on the left knee. She states that she has gotten mild relief from the 1st 2 injections. She denies any fevers or chills. She continues with her home exercise program. Director Of Manufacturing Required: Yes Director Of Manufacturing Language: Weight Guesser Services: Director Of Manufacturing Present Director Of Manufacturing Name: NupurMEKHI/ELIZABETH Allergies No Known Allergies Allergy (Verified 08/08/24 10:18) Medication List - Last Reconciled 08/08/24 by Juan Antonio Wang MD albuterol sulfate 90 mcg/actuation 2 puffs inhalation Q4-6H PRN albuterol sulfate 2.5 mg inhalation TID blood pressure test kit-large As directed gagisngvxb-ixypfdzgdxewg-qmbj 50-325-40 mg 1 tab PO Q4H cholecalciferol (vitamin D3) 25 mcg PO DAILY diclofenac sodium 1% 1 ea topical DAILY fluticasone propion-salmeterol 250-50 mcg/dose (Advair Diskus) 1 inh inhalation BID 30 days furosemide (Lasix) 20 mg PO DAILY loratadine 10 mg PO DAILY losartan 25 mg PO DAILY meloxicam 15 mg (2 x 7.5 mg) PO DAILY PRN plecanatide (Trulance) 3 mg PO DAILY propranolol ER 80 mg PO DAILY simvastatin 20 mg PO DAILY wheat dextrin (Benefiber Clear Sugar Free(dextrin)) 1 packet PO DAILY PFSH Medical History Hx of renal calculi Hx of migraine headaches Elevated cholesterol Asthma HTN (hypertension) Surgical History History of pterygium excision Hx of oophorectomy Hx of dilation and curettage Hx of hemorrhoidectomy Hx of lithotripsy H/O colonoscopy Family History Mother HTN (hypertension) Cancer Family/Other Cancer HTN (hypertension) Social History Household Members: None Alcohol intake: never Patient Tobacco Use Status: Former Tobacco user Years Smoked: 15 +/- Current occupational status: disabled Physical Exam Vital Signs: BMI result Body Mass Index 48.1 Extrem Other: Left knee examination shows a minimal effusion, palpable crepitus with range of motion, pain with range of motion, no instability Office Procedures AMB Joint Injection/Aspiration Joint Injection/Aspiration Primary Site: left knee Prep: site was prepped using aseptic technique Injected: 20 mg of (Euflexxa viscosupplementation) and 1% plain lidocaine Procedure: The patient tolerated the procedure well Coding 19633 - Large joint Procedure code (CPT) selection complete Results Reviewed Results Reviewed: X-rays of the patient's left knee taken previously show joint space narrowing, subchondral sclerosis, no acute bony abnormalities Assessment & Plan Assessment & Plan (1) Osteoarthritis of left knee: Code(s): M17.12 - Unilateral primary osteoarthritis, left knee Category: Medical Plan Ms. Alford presents with left knee pain due to osteoarthritis. The risks and benefits of a 3rd Euflexxa injection were discussed at length with the patient. The patient wished to proceed. She tolerated the injection well. She will continue with her home exercise program. She will follow up with me on an as- needed basis should her symptoms not plateau at an unacceptable level over the next few months. Feel free to call me at any time should questions regarding her orthopedic management arise. Orders: Orders AMB Joint Injection/Aspiration Today M17.12 - Unilateral primary osteoarthritis, left knee Coding Level of Care Code Procedure Only Diagnoses Osteoarthritis of left knee M17.12 CPT Codes Coding - 02695 Large joint: 47033 - Large joint ([id number])
[2024-08-08 10:18] VITALS: BMI 48.1
--- OUTSIDE RECORDS SUMMARY | 2024-08-08 12:13 | XMS_ITS | Continuity of Care Document ---
Author Organization [employer] [facility], [place] - [employer] Address [address] [place] [address] Care Team Providers Care Rackman Name Role Phone [facility] OTHER [phone] [facility] OTHER Assessment Encounter Date Assessment Date Assessment LastModified by Organization Details LastModified Time 06/06/2024 06/06/2024 I have reviewed and agree with the assessment and plan as documented by the mixing operator. I provided real-time medical direction for this encounter and was immediately available to provide additional phone-based assistance as needed. History as noted in EMR and by mixing operator. I would add / emphasize: Patient [...] 30 mg/mL injection solution 2023 024 pallfather [facility]25246, [address] [facility], [place], [place], [phone], 10:02:53 Patient TargetsNo targets recorded. Patient InstructionsNo [...] SNOMED-CT Code Diagnosis ICD10 Code Diagnosis Note [id number] Aubrey Duron MD Main - [facility] [address] [place] [phone] 06/06/2024 15:29:58 06/08/2024 13:08:51 Pain of knee region [id number] M25.569 Health Concerns Section Related Observation LastModified by Organization Simona zaman LastModified Time None Recorded Concern Status LastModified by Organization Details LastModified Time None Recorded Payers Encounter Date Sequence Insurance Name Policy Number Policy Griffith Covered Member ID Griffith Member ID Guarantor Name 06/06/2024 1 [facility] - DOS ON OR AFTER 2022 - DUAL ELIGIBLE - [facility] OPTIONS AND ONE CARE (MEDICARE REPLACEMENT/ADV ANTAGE - HMO) Valerie Alford [id number] Valerie Alford Notes Date Note Type Note [...] Hypertension, Hysterectomy, Asthma, Migraine Comments: Referral taken In Processing Instructor [id number]. Patient calling in to place a referral [...] .................. .................. .................. .................. .................. .................. ............... Clinical Technician Note From Timothy Burris: SC12 dispatched to [...] relief.Patient baseline vital signs obtained as noted. [facility] consulted and advised SC to administer 15mg Toradol IM to patient and withhold Ibuprofen for the rest of the day. [facility] advised that patient should increase Ibuprofen to 400mg 3 times a day and lastly follow up with her PCP regarding the issue. 15mg Toradol IM administered to patient in left deltoid without incident. Red flags were discussed with patient. .................. .................. .................. .................. .................. .................. .................. ............... [facility] Consulted: Aubrey Duron .................. .................. .................. .................. .................. .................. .................. ............... Disposition: Fulfilled Aubrey Duron MD [address] [facility],[address], [place], [address], [employer] [facility] 06/07/2024 10:03:04 OBGyn Episode No OBEpisode recorded.
== END 2024-08-08 10:34 | disposition home or self-care (01) ==
PROVIDERS: PCP Nurse Practitioner Primary Care; Visit Provider Orthopaedic Surgery
DX: M17.12 Unilateral primary osteoarthritis, left knee (principal)
CPT/HCPCS: 20610

== ENCOUNTER → 2024-08-08 10:13 | Outpatient (BNVA) | payer OTHER, SELFPAY | PROVIDERS: PCP Nurse Practitioner Primary Care; Visit Provider Orthopaedic Surgery | DX: M17.12 Unilateral primary osteoarthritis, left knee (principal) | CPT/HCPCS: 20610; J2003; J7323 ==

== ENCOUNTER 2024-08-09 14:48 | Outpatient (AMB) | payer OTHER, SELFPAY ==
[2024-08-09 14:54] VITALS: BP 148/67; PULSE 90; O2SAT 98; BMI 47.9
--- NOTE | 2024-08-09 14:54 | A.OFFVIS_ITS ---
Vital Signs 08/09/24 14:54 Height 5 ft 4 in Weight 279 lb BMI 47.9 BP 148/67 H Blood Pressure Location Rt brachial Position Sitting Pulse 90 Pulse Source Doppler Pulse Oximetry (%) 98 Oxygen Delivery Method Room Air Intake Visit Reasons: dyspnea New Media Strategist Required: Yes New Media Strategist Name: Miranda Carroll [place] Allergies No Known Allergies Allergy (Verified 08/09/24 14:58) HPI HPI dyspnea: Details: 59-year-old lady with underlying obesity, followed for moderate persistent asthma and SUJATHA on CPAP. She has been using Advair and albuterol MDI/nebs with reasonable control of her underlying asthma symptoms. Patient has been using her CPAP with reasonable control her underlying SUJATHA symptoms, though she is not fully compliant with its use. She denies recent exacerbations. [facility] Medical History Hx of renal calculi Hx of migraine headaches Elevated cholesterol Asthma HTN (hypertension) Surgical History History of pterygium excision Hx of oophorectomy Hx of dilation and curettage Hx of hemorrhoidectomy Hx of lithotripsy H/O colonoscopy Family History Mother HTN (hypertension) Cancer Family/Other Cancer HTN (hypertension) Social History Household Members: None Alcohol intake: never Patient Tobacco Use Status: Former Tobacco user Years Smoked: 15 +/- Current occupational status: disabled Review of Systems Const Denies daytime sleepiness, Denies excessive sweating, Denies fatigue, Denies fever(s), Denies lethargy, Denies malaise, Denies night sweats, Denies snoring and Denies weight loss Eyes Denies blurry vision and Denies itchy eyes ENT Denies nasal congestion, Denies post nasal drip, Denies sinus pain, Denies sinus pressure and Denies other ( Thrush) Card Denies chest pain, Denies pedal edema, Denies dyspnea, Denies orthopnea and Denies paroxysmal nocturnal dyspnea Resp Denies cough, Denies hemoptysis, Denies excessive phlegm production, Denies dyspnea, Denies snoring and Denies wheezing GI Denies abdominal pain and Denies heartburn Musc Denies myalgias, Denies arthralgias and Denies joint swelling Skin/Breast Denies rash Neuro Denies memory loss and Denies seizure-like activity Psych Denies abnormal sleep pattern, Denies anxiety and Denies memory loss Endo Denies excessive sweating, Denies fatigue and Denies heat intolerance Gagandeep/Lymph Denies easy bruising Aller/Immun Denies itchy eyes, Denies seasonal rhinorrhea and Denies wheezing Physical Exam Vital Signs: Last Vital Signs Pulse 90 08/09/24 14:54 BP 148/67 H 08/09/24 14:54 Pulse Ox 98 08/09/24 14:54 Oxygen Delivery Method Room Air 08/09/24 14:54 BMI result Body Mass Index 47.9 Const General: no acute distress and alert Nutritional Appearance: obese Orientation/consciousness: Other orientation findings ( oriented) HEENT Head: Yes atraumatic Eyes General: appearance normal, both eyes and all related structures Sclerae: sclerae normal EOM: EOMs intact bilaterally Neck Neck: Yes supple Lymphatic: no lymphadenopathy noted Resp Effort & Inspection: normal respiratory effort and no use of accessory muscles Auscultation: clear to auscultation bilaterally Cardio Rate: regular rate Rhythm: regular rhythm Heart sounds: no gallops, no murmurs and no rubs Skin General skin exam: other ( warm) Extrem General: No clubbing, No cyanosis and No edema Assessment & Plan Assessment & Plan (1) SUJATHA (obstructive sleep apnea): Code(s): G47.33 - Obstructive sleep apnea (adult) (pediatric) Category: Medical Plan: Controlled on current CPAP therapy, though patient is not fully compliant. Patient has been encouraged to be more compliant with her CPAP therapy. Continue current CPAP therapy. (2) Asthma: Code(s): J45.909 - Unspecified asthma, uncomplicated Category: Medical Plan: Well controlled on current regimen of Wixela and albuterol MDI/nebs. Continue current regimen. Coding Level of Care Code Est Pt Level 4 (76953) Diagnoses SUJATHA (obstructive sleep apnea) G47.33 Asthma J45.909
--- OUTSIDE RECORDS SUMMARY | 2024-08-09 17:22 | XMS_ITS | Continuity of Care Document ---
Author Organization [employer] [facility] [place] Address [address] [place] [address] Care Team Providers Care Armament Installer Name Role Phone [facility] OTHER [facility] OTHER Assessment Encounter Date Assessment Date Assessment LastModified by Organization Details LastModified Time 06/06/2024 06/06/2024 I have reviewed and agree with the assessment and plan as documented by the water resource project manager. I provided real-time medical direction for this encounter and was immediately available to provide additional phone-based assistance as needed. History as noted in EMR and by water resource project manager. I would add / emphasize: Patient seen [...] 30 mg/mL injection solution 2023 024 pallfather [id number], [address], [place], [place], [phone], 10:02:53 Patient TargetsNo targets recorded. Patient InstructionsNo [...] SNOMED-CT Code Diagnosis ICD10 Code Diagnosis Note [id number] Aubrey Duron MD Main - [facility] [address] [place] [phone] 06/06/2024 15:29:58 06/08/2024 13:08:51 Pain of knee region [id number] M25.569 Health Concerns Section Related Observation LastModified by Organization Simona zaman LastModified Time None Recorded Concern Status LastModified by Organization Details LastModified Time None Recorded Payers Encounter Date Sequence Insurance Name Policy Number Policy Griffith Covered Member ID Griffith Member ID Guarantor Name 06/06/2024 1 [facility] - DOS ON OR AFTER 2022 - DUAL ELIGIBLE - LONG-TERM OPTIONS AND ONE CARE (MEDICARE REPLACEMENT/ADV ANTAGE - HMO) Valerie Alford [id number] Valerie Alford Notes Date Note Type Note Provider Name and Address Organization Details Recorded Time 06/06/2024 text/html [facility] Nurse Triage Notes (Alicia Adknis): Reason For Request: nurse came to pt's home and suggested insted. ER did sonogram on left leg previously, but nurse noticed more swelling and encouraged pt to get checked by us Chief Complaints: Leg pain/swelling PMH: Hypertension, Hysterectomy, Asthma, Migraine Comments: Referral taken Marketing Finance Specialist [id number]. Patient calling in to place a referral [...] .................. .................. .................. .................. .................. .................. ............... Radiation / Chemistry Technician Note From Timothy Burris: SC12 dispatched [...] relief.Patient baseline vital signs obtained as noted. [facility] [place] consulted and advised SC to administer 15mg Toradol IM to patient and withhold Ibuprofen for the rest of the day. [facility] [place] advised that patient should increase Ibuprofen to 400mg 3 times a day and lastly follow up with her PCP regarding the issue. 15mg Toradol IM administered to patient in left deltoid without incident. Red flags were discussed with patient. .................. .................. .................. .................. .................. .................. .................. ............... [facility] [place] Consulted: Aubrey Duron .................. .................. .................. .................. .................. .................. .................. ............... Disposition: Fulfilled Aubrey Duron MD [address] [facility],[address], [place], [address], [email or web address] - [facility] 06/07/2024 10:03:04 OBGyn Episode No OBEpisode recorded.
== END 2024-08-09 15:18 | disposition home or self-care (01) ==
PROVIDERS: PCP Nurse Practitioner Primary Care; Visit Provider Internal Medicine Pulmonary Disease
DX: G47.33 Obstructive sleep apnea (adult) (pediatric) (principal); J45.909 Unspecified asthma, uncomplicated
CPT/HCPCS: 99214

== ENCOUNTER → 2024-08-09 14:48 | Outpatient (BNVA) | payer OTHER, SELFPAY | PROVIDERS: PCP Nurse Practitioner Primary Care; Visit Provider Internal Medicine Pulmonary Disease | DX: J45.909 Unspecified asthma, uncomplicated (principal); G47.33 Obstructive sleep apnea (adult) (pediatric) | CPT/HCPCS: 99212 ==

== ENCOUNTER 2024-08-12 13:53 | Outpatient (REF) | payer OTHER, SELFPAY | END 2024-08-12 13:54 | disposition home or self-care (01) | LOC: HO.MAMMO 13:53 | PROVIDERS: PCP Nurse Practitioner Primary Care; Visit Provider Nurse Practitioner Primary Care | DX: Z12.31 Encounter for screening mammogram for malignant neoplasm of breast (principal) | CPT/HCPCS: 77063; 77067 ==

== ENCOUNTER → 2024-08-12 14:00 | Outpatient (BNV) | payer OTHER, SELFPAY | PROVIDERS: PCP Nurse Practitioner Primary Care; Visit Provider Internal Medicine | DX: Z12.31 Encounter for screening mammogram for malignant neoplasm of breast (principal) | CPT/HCPCS: 77063; 77067 ==

== ENCOUNTER 2025-02-21 19:17 | Emergency (ER) | payer OTHER, SELFPAY ==
[2025-02-21 19:35] VITALS: BP 191/83; PULSE 83; RESP 16; TEMP 36.3; O2SAT 95; BMI 48.1
[2025-02-21 20:42] VITALS: BP 186/86; PULSE 77; RESP 16; TEMP 36.6; O2SAT 96
--- NOTE | 2025-02-21 21:23 | ED.GENADULT ---
HPI - General Adult General Chief complaint: General Medical Stated complaint: L leg pain and swelling Time Seen by Provider: 02/21/25 21:08 Source: patient Mode of arrival: ambulatory Limitations: no limitations History of Present Illness ED Provider: Dr. Carla Strickland HPI narrative: patient comes to the emergency room complaining left upper thigh pain for 2 weeks. Patient states that it has been hurting intermittently since 2023. Patient states that she has been seen multiple times by her primary care physician in other emergency rooms. Patient states that she has had multiple ultrasounds and they all have been negative for DVTs. Patient denies any trauma to the area. In triage, it was noted that patient's blood pressure is 191/83. Patient states that she did not take her blood pressure medication today, she admits that she is not 100% compliant with her meds. Denies chest pain headache nausea vomiting or blurred vision. Related Data Home Medications ?Medication ?Instructions ?Recorded ?Confirmed albuterol sulfate 90 mcg/actuation 2 puff inhalation Q4-6H PRN 09/18/20 08/08/24 aerosol inhaler Shortness Of Breath Or Wheezing cholecalciferol (vitamin D3) 25 25 mcg PO DAILY 09/18/20 08/08/24 mcg (1,000 unit) capsule loratadine 10 mg capsule 10 mg PO DAILY 09/18/20 08/08/24 simvastatin 20 mg tablet 20 mg PO DAILY 09/18/20 08/08/24 albuterol sulfate 2.5 mg/3 mL 2.5 mg inhalation TID 10/19/20 08/08/24 (0.083 %) solution for nebulization blood pressure test kit-large #1 ea 10/19/20 08/08/24 diclofenac sodium 1 % topical gel 1 ea topical DAILY 10/19/20 08/08/24 kfzotappko-xctfkcyopumry-xnblpzfa 1 tab PO Q4H 10/11/22 08/08/24 50 mg-325 mg-40 mg tablet losartan 25 mg tablet 25 mg PO DAILY 10/11/22 08/08/24 propranolol 80 mg capsule,24 80 mg PO DAILY 10/11/22 08/08/24 hr,extended release Previous Rx's ?Medication ?Instructions ?Recorded plecanatide 3 mg tablet (Trulance) 3 mg PO DAILY #30 tabs 07/26/21 wheat dextrin 3 gram/3.5 gram oral 1 packet PO DAILY #28 ea 07/26/21 powder packet (Benefiber Clear Sugar Free(dextrin)) fluticasone 250 mcg-salmeterol 50 1 inh inhalation BID 30 days #1 ea 08/04/21 mcg/dose blistr powdr for inhalation (Advair Diskus) furosemide 20 mg tablet (Lasix) 20 mg PO DAILY #90 tabs 09/30/21 meloxicam 7.5 mg tablet 15 mg (2 x 7.5 mg) PO DAILY PRN 05/04/23 pain #30 tabs Allergies Allergy/AdvReac Type Severity Reaction Status Date / Time No Known Allergies Allergy Verified 02/21/25 19:41 Review of Systems Review of Systems: Constitutional : No Weight loss, No Fever, No Chills, No Night Sweats, No Fatigue, No Malaise ENT/Mouth : No Hearing loss, No Ear Pain, No Nasal Congestion, No Sinus Pain, No Hoarseness, No sore throat, No Rhinorrhea, No Swallowing Difficulty Eyes: No Eye Pain, No Swelling, No Redness, No Foreign Body, No Discharge, No Vision Changes Cardiovascular : No Chest Pain, No SOB, No Dyspnea on Exertion, No Orthopnea, No Edema, No Palpitations Respiratory : No Cough, No Sputum, No Wheezing, No Smoke Exposure, No Dyspnea Gastrointestinal : No Nausea, No Vomiting, No Diarrhea, No Constipation, No abdominal Pain, No Hematochezia, No Melena Genitourinary : no irregular bleeding, No Dysuria, No Urinary Frequency, No Hematuria, No Urinary Incontinence, No Urgency, No Flank Pain, No Urinary Flow Changes, No Hesitancy Musculoskeletal : Complaining of upper left thigh pain No joint pain, No Myalgias, No Joint Swelling Skin : No Skin Lesions, No rash Neuro : No Weakness, No Numbness, No Paresthesias, No Loss of Consciousness, No Dizziness, No Headache Psych : No Anxiety/Panic, No Depression, No SI/HI/AH/VH, No Social Issues, Heme/Lymph: No Bruising, No Bleeding,No Lymphadenopathy Endocrine : No Polyuria, No Polydipsia, No Temperature Intolerance PMFSH Past Medical History Medical History Hx of renal calculi Hx of migraine headaches Elevated cholesterol Asthma HTN (hypertension) Surgical History History of pterygium excision Hx of oophorectomy Hx of dilation and curettage Hx of hemorrhoidectomy Hx of lithotripsy H/O colonoscopy Family History Family History Mother HTN (hypertension) Cancer Family/Other Cancer HTN (hypertension) Social History Social History Household Members: None Alcohol intake: never Patient Tobacco Use Status: Former Tobacco user Years Smoked: 15 +/- Smoked in Last 30 Days: No Use of substances other than those prescribed or required for medical reasons: No Advance Directives: No Advance Directives Information Provided: No Do you have a plan to hurt others: No Plan Patient : No Current occupational status: disabled Physical Exam ED Exam Exam: Appearance: Alert. Oriented X3. No acute distress. Eyes: Pupils equal, round and reactive to light. ENT: Pharynx normal. Neck: Normal inspection. Neck supple. No lymph nodes noted. No crepitus CVS: Normal heart rate and rhythm. Pulses normal. Normal S1 and S2 Respiratory: No respiratory distress. Breath sounds normal. No Wheezing. No rales Abdomen: Soft and nontender. No rigidity. No distention. Skin: Skin warm and dry. Normal skin color. Normal skin turgor. Extremities: No lower extremity edema. No Lacerations. No Rash due to patient's body habitus, she has larger legs. No pitting edema. Patient states she has pain to palpation. However, there is no erythema, no obvious swelling, no palpable masses. Neuro: Oriented X 3. No motor deficit. No sensory deficit. Moving all extremities. No slurred speech. CN 2 through 12 grossly intact Psych: calm, cooperative, normal affect Vital Signs: Vital Signs - 24 hr 02/21/25 19:35 02/21/25 20:42 02/21/25 21:50 Temperature 97.3 F 97.9 F Pulse Rate 83 77 Respiratory Rate 16 16 Blood Pressure 191/83 H 186/86 H 189/86 H Pulse Oximetry 95 96 Oxygen Delivery Method Room Air Room Air 02/21/25 22:14 Temperature 97.8 F Pulse Rate 75 Respiratory Rate 18 Blood Pressure 157/68 H Pulse Oximetry 98 Oxygen Delivery Method Room Air BMI result Body Mass Index 48.1 Course Course Course Narrative: I discussed the physical exam with the patient. Last time the patient had an ultrasound in our records was 2022, patient reports that she has had multiple ultrasounds elsewhere. At this time, patient declined getting an ultrasound done. Patient states that she has an appointment pending with her primary care physician on Monday. Patient is agreeable to take pain medication. Medications Administered Discontinued Medications Generic Name Dose Route Start Last Admin Trade Name Wes PRN Reason Stop Dose Admin Hydrochlorothiazide 25 mg 02/21/25 21:20 02/21/25 21:53 Hydrochlorothiazide 25 Mg Tablet PO 02/21/25 21:21 Not Given ONCE ONE Protocol Ketorolac Tromethamine 60 mg 02/21/25 21:57 02/21/25 22:16 Ketorolac Tromethamine 60 Mg/2 Ml Vial IM 02/21/25 21:58 60 mg ONCE ONE Administration Losartan Potassium 50 mg 02/21/25 21:20 02/21/25 21:50 Losartan Potassium 50 Mg Tablet PO 02/21/25 21:21 50 mg ONCE ONE Administration Protocol Medical Decision Making Medical Decision Making [facility] Narrative: Patient denies being on blood thinners, patient was given IM ketorolac. Also it was noted that patient's blood pressure is in the 180s to 190s systolic. Patient asymptomatic. Here in the emergency room, patient was given hydrochlorothiazide and losartan. I discussed with the patient the dangers of having a chronic high blood pressure. Patient states that when she takes her blood pressure home, it is usually between 180 and 190 as well. Patient states that she was unaware that high blood pressure can cause issues and complications with her heart kidneys, brain bleeds /stroke, etc. but now she is aware patient was given a dose of losartan here in the emergency room, 50 mg, blood pressure 157/68, patient remains asymptomatic. Patient states that she will be more compliant with the medications and has an appointment pending in 4 days with her PCP. Patient states that she has plenty of her tablets for BP home Differential Diagnosis Differential Diagnoses: The differential diagnosis associated with the presentation includes ( DVT, musculoskeletal pain, hypertensive urgency, hypertensive emergency) Admission/Observation Consideration of admission/observation: Escalation of care including admission/observation considered ( given patient's high blood pressure, observation was considered) Critical Care Time Critical Care Time Critical Care Time: Yes Total Critical Care Time: 40 Attestation: I have personally provided critical care time. Time includes review of lab data, radiology results, discussion with consultants, and monitoring for potential decompensation. Intervention performed as documented. Discharge Plan Discharge Clinical Impression: Chronic leg pain, Hypertension Patient Disposition: Home, Self-Care Instructions: Chronic Hypertension (ED), Leg Pain (ED) Prescriptions: No Action albuterol sulfate 2.5 mg /3 mL (0.083 %) solution for nebulization 2.5 mg inhalation TID (DME) blood pressure test kit-large Kit See Rx Instructions .ROUTE DAILY Qty: 1 Rx Instructions: As directed diclofenac sodium 1 % gel 1 ea topical DAILY albuterol sulfate 90 mcg/actuation HFA aerosol inhaler 2 puff inhalation Q4-6H PRN (Reason: Shortness Of Breath Or Wheezing) simvastatin 20 mg tablet 20 mg PO DAILY cholecalciferol (vitamin D3) 25 mcg (1,000 unit) capsule 25 mcg PO DAILY loratadine 10 mg capsule 10 mg PO DAILY Trulance 3 mg tablet 3 mg PO DAILY Qty: 30 3RF Benefiber Clear SF (dextrin) 3 gram/3.5 gram powder in packet 1 packet PO DAILY Qty: 28 5RF Rx Instructions: mix into at least 4 oz water or juice before administering furosemide [Lasix] 20 mg tablet 20 mg PO DAILY Qty: 90 3RF fluticasone propion-salmeterol [Advair Diskus] 250-50 mcg/dose blister with device 1 inh inhalation BID 30 Days Qty: 1 6RF fnkkizqaue-rdvrcleqzdvji-ahvt 50-325-40 mg tablet 1 tab PO Q4H propranolol 80 mg capsule,extended release 24 hr 80 mg PO DAILY losartan 25 mg tablet 25 mg PO DAILY meloxicam 7.5 mg tablet 15 mg PO DAILY PRN (Reason: pain) Qty: 30 2RF Print Language: Turkmen
[2025-02-21 21:50] VITALS: BP 189/86
[2025-02-21 22:14] VITALS: BP 157/68; PULSE 75; RESP 18; TEMP 36.6; O2SAT 98
[2025-02-21 23:04] VITALS: BP 157/68; PULSE 75; RESP 18; TEMP 36.6; O2SAT 98
== END 2025-02-21 23:04 | disposition home or self-care (01) ==
PROVIDERS: Emergency Provider Emergency Medicine; PCP Nurse Practitioner Primary Care
DX: M79.605 Pain in left leg (principal); I10 Essential (primary) hypertension; J45.909 Unspecified asthma, uncomplicated; Z79.899 Other long term (current) drug therapy
CPT/HCPCS: 96372; 99284; J1885

== ENCOUNTER → 2025-03-12 19:30 | Outpatient (REF) | payer OTHER, SELFPAY | LOC: HO.SL 19:30 | PROVIDERS: PCP Nurse Practitioner Primary Care; Visit Provider Nurse Practitioner Primary Care | DX: G47.33 Obstructive sleep apnea (adult) (pediatric) (principal); R06.83 Snoring | CPT/HCPCS: 95810 ==

== ENCOUNTER → 2025-03-12 19:30 | Outpatient (BNV) | payer OTHER, SELFPAY | PROVIDERS: PCP Nurse Practitioner Primary Care; Visit Provider Internal Medicine | DX: G47.33 Obstructive sleep apnea (adult) (pediatric) (principal); R06.83 Snoring | CPT/HCPCS: 95810 ==

== ENCOUNTER 2025-03-21 13:31 | Outpatient (AMB) | payer OTHER, SELFPAY ==
--- OUTSIDE RECORDS SUMMARY | 2025-03-21 13:41 | XMS_ITS | Encounter Summary ---
Author Organization [employer] Address [address] [place] [address] [address] [place] [address] Care Team Providers Care Plastic Surgery Technician Name Role Phone Candice Lance Primary Care Provider Reason for Visit * Reason Onset Date Comments Change PCP 07/31/2023 Encounter Details Date Type Department Care Team (Late st Contact Info) Description 07/31/2023 Telephone [facility] [address] [place] [phone] Candice Lance ANP [address] [place], [place] [phone] Change PCP Social History Tobacco Use Types Packs/Day Years Used Date Smoking Tobacco: Never Smokeless Tobacco: Never Comments Unknown Sex and Gender Information Value Date Recorded Sex Assigned at Female 05/23/2022 10:14 AM EDT Legal Sex Female 10:14 AM EDT Gender Identity Female 05/23/2022 10:14 AM EDT Sexual Orientation Straight 05/23/2022 10 :14 AM EDT documented as of this encounter Miscellaneous Notes * Telephone Encounter - Tony Stuart - 07/31/2023 3:16 PM EST Tc from the patients Cement Paver Flory at [facility] care calling to request a Change in PCP stated needs a provider which has more availability. documented in this encounter Plan of Treatment Upcoming Encounters Date Type Department Care Team (Late st Contact Info) Description 04/11/2025 1:00 PM EDT Office Visit [facility] [address] [place] [phone] Candice Lance ANP [address] [place] [address] documented as of this encounter Visit Diagnoses Not on filedocumented in this encounter Care Teams Plastic Surgery Technician Relationship Specialty Start Date End Date Candice Lance ANP [address] [place] [address] PCP - General Family Medicine 03/17/20 documented as of this encounter
--- OUTSIDE RECORDS SUMMARY | 2025-03-21 13:41 | XMS_ITS | Encounter Summary ---
Author Organization [employer] Address [address] [facility] [address] [place] [address] Care Team Providers Care Copy Room Technician Name Role Phone Candice Lance Primary Care Provider [phone] Encounter Details Date Type Department Care Team ([facility] st Contact Info) Description 11/20/2024 Orders Only [facility] [address] [place], [place] [phone] Lor Nassar Social History Tobacco Use Types Packs/Day Years Used Date Smoking Tobacco: Former Cigarettes Smokeless Tobacco: Never Alcohol Use Standard Drinks/Week Comments Never 0 (1 standard drink = 0.6 oz pur e alcohol) Depression Answer Date Recorded Patient Health Questionnaire-9 Score 0 09/12/2023 Patient Health Questionnaire-9 Score 0 09/12/2023 Last PHQ-9: Questionnaire Data Not on file 0 09/12/2023 Housing Stability Answer Date Recorded What is your housing situation today? Not on qasim e 09/20/[address] you li ve. Do you have problems with any of the following? None of the above 09/20/2024 Food Insecurity Answer Date Recorded Within the past 12 months, y ou worried that your food would run out before you got money to buy more: Never True 09/20/2024 Within the past 12 months,th e food you bought just didn't last and you didn't have enough money to get more: Never True Transportation Answer Date Recorded In the past 12 months, has l ack of transportation kept you from medical appts, meetings, work or from getting things needed for daily living? No 09/20/2024 Utilities Answer Date Recorded In the past 12 months, has t he electric, gas, oil or water company threatened to shut off services in your home? No 09/20/2024 Depression Answer Date Recorded Patient Health Questionnaire-2 Score 3 09/20/2024 Internet Access Answer Date Recorded Internet Access Q1 Yes 03/25/2024 Internet Access Q2 Not on file 03/25/2024 Comments No Sex and Gender Information Value Date Recorded Sex Assigned at Female 05/23/2022 10:14 AM EDT Legal Sex Female 10:14 AM EDT Gender Identity Female 05/23/2022 10:14 AM EDT Sexual Orientation Straight 05/23/2022 10 :14 AM EDT documented as of this encounter Plan of Treatment Upcoming Encounters Date Type Department Care Team (Late st Contact Info) Description 04/11/2025 1:00 PM EDT Office Visit [facility] [address] [place] [phone] Candice Lance ANP [address] [place] [phone] documented as of this encounter Procedures Procedure Name Priority Date/Time Associated Diagnosis Comments HPV MRNA E6/E7 REFLEX TO HPV 16, 18/45 Routine 07/30/2024 12:00 AM EST documented in this encounter Results * HPV mRNA E6/E7 w/Reflex to HPV Genotypes 16, 18/45 (07/30/2024 12:00 AM EST) us Historical Provider LAB CYTOLOGY ORDERABLES F inal Result documented in this encounter Visit Diagnoses Not on filedocumented in this encounter Additional Health Concerns Assessment Noted Time PHQ-9 Depression Total Score: 0 09/12/19 24 1:31 PM EST documented as of this encounter Care Teams Copy Room Technician Relationship Specialty Start Date End Date Candice Lance ANP [address] [place] [phone] PCP - General Family Medicine 03/17/20 documented as of this encounter
--- OUTSIDE RECORDS SUMMARY | 2025-03-21 13:41 | XMS_ITS | Encounter Summary ---
Author Organization [employer] Address [address] [facility] [address] [place] [address] Care Team Providers Care Die Reamer Name Role Phone Candice Lance Primary Care Provider [phone] Encounter Details Date Type Department Care Team (Late st Contact Info) Description 07/11/2023 Orders Only [facility] [address] [place] [address] Ying Calhoun LPN Social History Tobacco Use Types Packs/Day Years [...] Description 04/11/2025 1:00 PM EDT Office Visit [facility] [address] [place] [address] Candice Lance ANP [address] [place] [address] documented as of this encounter Visit Diagnoses Not on filedocumented in this encounter Care Teams Die Reamer Relationship Specialty Start Date End Date Candice Lance ANP [address] [place] [address] PCP - General Family Medicine 03/17/20 documented as of this encounter
--- OUTSIDE RECORDS SUMMARY | 2025-03-21 13:41 | XMS_ITS | Clinical Summary ---
Author Organization [employer] Address [address] [facility] [address] [place] [address] Care Team Providers Care University Registrar Name Role Phone Tim Oakley Primary Care Provider Allergies No known active allergies Medications butalbital-acetam inophen-caffeine 50-325-40 MG tablet TAKE 1 TABLET BY MOUTH EVERY 4 HOURS. NOT TO EXCEED 8 TABLETS PER MONTH 8 tablet 5 023 Active albuterol (2.5 MG/3ML) 0.083% nebulizer solution INHALE 3 ML BY NEBULIZATION ROUTE THREE TIMES A DAY 90 mL 023 Active simvastatin (Zocor) 20 MG tabletIndications :Hyperlipidemia, unspecified hyperlipidemia type take 1 tablet by oral route every day in the evening 90 tablet 3 024 Active albuterol (Ventolin HFA) 108 (90 Base) MCG/ACT inhalerIndication s:Moderate persistent asthma without complication INHALE 2 PUFFS BY MOUTH EVERY 4 HOURS IF NEEDED 18 g 2 024 Active Diclofenac Sodium (Voltaren) 1 % gelIndications:Ch ronic pain of left knee,Douglas's cyst, left Apply 4 g topically if needed in the morning, at noon, in the evening, and at bedtime (pain). 150 g 1 024 Active Wixela Inhub 100-50 MCG/ACT aerosol powderIndications :Moderate persistent asthma without complication INHALE 1 PUFF BY MOUTH EVERY 12 HOURS 60 each 2 025 Active hydroCHLOROthiazi de (HYDRODiuril) 25 MG tablet TAKE 1 TABLET BY MOUTH EVERY DAY 90 tablet 3 025 Active lidocaine (Lidoderm) 5 % patchIndications: Acute left-sided low back pain with left-sided sciatica Apply 1 patch topically Once per day. Remove & discard patch within 12 hours or as directed by MD. 30 patch 2 Active olmesartan (Benicar) 40 MG tabletIndications :Primary hypertension Take 1 tablet (40 mg) by mouth Once per day. 90 tablet 1 025 2025 Active acetaminophen (Acetaminophen 8 Hour) 650 MG ER tabletIndications :Acute left-sided low back pain with left-sided sciatica Take 1 tab as needed up to TID. Do not crush, chew, or split. 180 tablet Active butalbital-acetam inophen-caffeine (Fioricet) 50-300-40 MG capsuleIndication s:Migraine without aura and without status migrainosus, not intractable Take 1 capsule by mouth every 6 (six) hours if needed for headaches. Do not exceed 8 tablets/mo 8 capsule 1 024 2024 Discontinued(D uplicate order (will not trigger notification to Pharmacy)) olmesartan (Benicar) 20 MG tabletIndications :Primary hypertension Take 1 tablet (20 mg) by mouth Once per day. 90 tablet 1 025 2024 Discontinued(R eorder (will not trigger notification to Pharmacy)) acetaminophen (Acetaminophen 8 Hour) 650 MG ER tabletIndications :Acute left-sided low back pain with left-sided sciatica Take 1 tab as needed up to TID. Do not crush, chew, or split. 180 tablet 025 2024 Discontinued(R eorder (will not trigger notification to Pharmacy)) furosemide (Lasix) 20 MG tabletIndications :Bilateral edema of lower extremity Take 1 tablet (20 mg) by mouth in the morning. 5 tablet 025 2024 Discontinued Active Problems Problem Noted Date Diagnosed Date HTN (hypertension) 02/28/2023 Sleep apnea 02/26/2015 Depressive disorder 02/26/2015 Multilevel degenerative disc disease 02/26/2015 Peripheral vascular disease 02/26/2015 Hyperlipidemia 07/10/2014 Impaired glucose tolerance 07/10/2014 Tubular adenoma of colon 04/15/2014 Vitamin D deficiency 04/15/2014 Obesity 02/07/2013 Sacroiliac joint pain 12/31/2012 Asthma 12/08/2011 Headache 12/08/2011 Pure hypercholesterolemia 12/08/2011 Shoulder joint pain 12/08/2011 Essential hypertension 12/08/2011 Encounters Date Type Department Care Team Description 02/25/2025 11:15 AM EDT Office Visit [address] [address] Tim Oakley ANP Bilateral leg edema (Primary Dx); Peripheral vascular disease (CMS/HCC); Essential hypertension; Primary hypertension; Constipation, unspecified constipation type; Acute left-sided low back pain with left-sided sciatica 02/25/[address] [address] Tim Oakley ANP Durable Medical Equipment 02/25/2025 Travel 02/21/2025 1:00 PM EDT Telemedicine [address] [address] Savanna Garcia, RN Bilateral edema of lower extremity 02/21/2025 Travel 01/17/2025 1:30 PM EDT Office Visit [address] [address] Tim Oakley ANP Essential hypertension (Primary Dx); Hyperlipidemia, unspecified hyperlipidemia type; Obstructive sleep apnea syndrome; Need for hepatitis B screening test; Routine screening for STI (sexually transmitted infection); Chronic pain of left knee; Encounter for immunization; Acute left-sided low back pain with left-sided sciatica; Bilateral edema of lower extremity 01/17/2025 Travel 01/16/[address] [address] Tim Oakley ANP CHART PREP 01/10/2025 Patient Outreach [facility] [address] [place], [place] [phone] Tim Oakley ANP Pre-visit Planning (SDOH negative. Tobacco screening negative. ) from Last 3 Months Immunizations Immunization Administration Dates Next Due Hep B, adult 07/02/2010 Influenza injectable quadriv alent IIV4 with preservative 06/08/2017,04/20/2016 Influenza injectable quadriv alent preservative free 04/29/2022,09/30/2021 Influenza, IIV3, injectable 04/24/2014, 6,05/22/1997 Influenza, Split (incl. marcelo fied surface antigen) 04/10/2013 Influenza, seasonal, injecta ble, preservative free 06/18/2024 Pneumococcal Conjugate PCV 20 09/12/2023 TD (adult), 2 Lf tetanus tox oid, preservative free, adsorbed 05/26/2008,06/04/1997 Tdap 01/17/2025,01/13/2015 Zoster, Recombinant 05/27/2021,03/25/2021 Family History Medical History Relation Name Comments Cancer Mother CHILD DEVELOPMENT TEACHER of some typ e Relation Name Status Comments Mother Social History Tobacco Use Types Packs/Day Years Used Date Smoking Tobacco: Former Cigarettes Smokeless Tobacco: Never Tobacco Cessation:Counseling Given: Not Answered Alcohol Use Standard Drinks/Week Comments Never 0 (1 standard drink = 0.6 oz pur e alcohol) Depression Answer Date Recorded Patient Health Questionnaire-9 Score 0 09/12/2023 Patient Health Questionnaire-9 Score 0 09/12/2023 Last PHQ-9: Questionnaire Data Not on file 0 09/12/2023 Housing Stability Answer Date Recorded What is your housing situation today? I have bhavesh ochoa 01/10/[address] you li ve. Do you have problems with any of the following? None of the above 01/10/2025 Food Insecurity Answer Date Recorded Within the [...] Orientation Straight 05/23/2022 10 :14 AM EDT Last Filed Vital Signs Vital Sign Reading Time Taken Comments Blood Pressure 160/72 02/25/2025 11:43 AM EDT Pulse 92 02/25/2025 11:34 AM EDT Temperature 36.6 C (97.9 F) 09/20/2024 1:52 PM EST Respiratory Rate 16 02/25/2025 11:34 AM EDT Oxygen Saturation 98% 09/20/2024 1:52 PM EST Inhaled Oxygen Concentration - - Weight 127 kg (279 lb) 02/25/2025 11:34 AM EDT Height 162.6 cm (5' 4 ) 02/25/2025 11:34 AM EDT Body Mass Index 47.89 02/25/2025 11:34 AM EDT Plan of Treatment Upcoming Encounters Date Type Department Care Team (Late st Contact Info) Description 04/11/2025 1:00 PM EDT Office Visit [facility] [address] [place], [place] [phone] Tim Oakley, ANP [address] [place] [address] Health Maintenance Due Date Last Done Comments CT Colonography 1965 FIT DNA/Cologuard 1965 FIT 1965 FOBT 1965 HIV Screening 1965 Sigmoidoscopy 1965 Hepatitis C Screening 1981 Hepatitis B Vaccines (2 of 3 - 19+ 3-dose series) 07/30/2010 07/02/2010 RSV Patients and Patients Aged 60 years or older (1 - Risk 60-74 years 1-dose series) 2023 Influenza Vaccine (#1) 2025 , 04/29/2022, 09/30/2021, Additional history exists Mammogram 08/12/2025 08/12/2024, 05/25, 12/29/2017 Alcohol/Substance Use Screening 09/20/2025 09/20/2024 COVID-19 Vaccine ( season) 2025 Postponed from 03/24/2024 (Patient Refused) Depression Screening 09/20/2025 09/20/2024, 09/12/19 24 SDOH Screening 01/10/2026 01/10/2025 Disability Screening 01/17/2026 01/17/2025 Tobacco Screening 02/25/2026 02/25/2025 Lipid Panel 02/15/2029 02/16/2024, 08/14/2020 HPV/Cotest 07/30/2029 07/30/2024, 06/13/2019 Pap Smear 07/30/2029 07/30/2024 Colonoscopy 12/24/2030 12/24/2020 Colorectal Cancer Screening 12/24/2030 DTaP/Tdap/Td Vaccines (3 - Td or Tdap) 01/17/2035 01/17/2025, 01/13/2015, 05/26/2008, Additional history exists Zoster Vaccines Completed 05/27/2021, 03/25/2021 Pneumococcal Vaccine: 50+ Years Completed 09/12/2023 HIB Vaccines Aged Out No longer eligi ble based on patient's age to complete this topic HPV Vaccines Aged Out No longer eligi ble based on patient's age to complete this topic Hepatitis A Vaccines Aged Out No long er eligible based on patient's age to complete this topic IPV Vaccines Aged Out No longer eligi ble based on patient's age to complete this topic Meningococcal B Vaccine Aged Out No l onger eligible based on patient's age to complete this topic Meningococcal Vaccine Aged Out No anson tabitha eligible based on patient's age to complete this topic RSV under 20 months Aged Out No longe r eligible based on patient's age to complete this topic Rotavirus Vaccines Aged Out No longer eligible based on patient's age to complete this topic Procedures Procedure Name Priority Date/Time Associated Diagnosis Comments BI MAMMOGRAM SCREENING TOMOSYNTHESIS BILATERAL Routine 08/12/2024 2:00 PM EST PAP SMEAR Routine 07/30/2024 1:15 PM EST Cervical cancer screening HPV MRNA E6/E7 REFLEX TO HPV 16, 18/45 Routine 07/30/2024 12:00 AM EST LIPID PANEL, STANDARD Routine 02/16/2024 10:50 AM EDT Hyperlipidemia, unspecified hyperlipidemia type HM COLONOSCOPY Routine 12/24/2020 from Last 3 Months or Most Recently Relevant to Health Maintenance Results * BI Mammogram Screening Tomosynthesis Bilateral (08/12/2024 2:00 PM EST) Anatomical Region Laterality Modality Breast Bilateral Mammography 08/12/2024 2:00 PM EST Narrative 08/20/2024 2:11 PM EST [address] [place] [address] Mammography Report Signed Patient: Valerie Alford MR#: [id number] : 1965 Acct:[id number] Age/Sex: 59 / F ADM Date: 08/12/24 Loc: [facility] Attending Dr: Tim Oakley NP Ordering Physician: TIM OAKLEY NP Results: 1Negative Date of Service: 08/12/24 Follow Up: 1 Year From Orig ina Mammogram Procedure(s): MM tomosynthesis screening BI Accession Number(s): [id number] cc: TIM OAKLEY NP EXAMINATION: MM SCREENING DIGITAL BREAST TOMOSYNTHESIS, BILATERAL CLINICAL INFORMATION: Screening. Asymptomatic. COMPARISON: Mammography: Comparison is made with available priors TECHNIQUE: Digital breast mammography with tomosynthesis is performed in both the craniocaudal and mediolateral oblique views along with computer-aided detection (CAD). FINDINGS: There are scattered areas of fibroglandular density (ACR BI-RADS breast composition Category b). There are no significant masses, abnormal calcifications, or other abnormalities. MM/MM tomosynthesis screening BI IMPRESSION: No mammographic evidence of malignancy. ASSESSMENT: BI-RADS BI-RADS 1 - Negative RECOMMENDATION: Routine annual mammography screening. 1 year F/U This examination should not preclude the clinical evaluation of a suspicious palpable abnormality. This patient's information was entered into a reminder system with a target due date for their next mammogram. Electronically signed by: Jerilyn Hyatt DO 08/20/2024 02:08 PM EST Dictated By: Jerilyn Hyatt DO Signed By: <Electronically signed by Jerilyn Hyatt DO in OV> 08/20/24 1408 DD/ 1400 TD/TT: 08/12/24 1415 Data Warehouse Architect: Procedure Note Donotuseinterpreter, Image - 08/20/2024 [facility] [address] [place] [address] Mammography Report Signed Patient: Valerie Alford MMR#: [id number] : 1965Acct:[id number] Age/Sex: 59 / FADM Date: 08/12/24 Loc: HO.MAMMO Attending Dr: Tim Oakley NP Ordering Physician: TIM OAKLEY NPResults: 1Negative Date of Service: 08/12/24Follow Up: 1 Year From Orig inal Mammogram Procedure(s): MM tomosynthesis screening BI Accession Number(s): [id number] cc: TIM OAKLEY NP EXAMINATION: MM SCREENING DIGITAL BREAST TOMOSYNTHESIS, BILATERAL CLINICAL INFORMATION: Screening. Asymptomatic. COMPARISON: Mammography: Comparison is made with available priors TECHNIQUE: Digital breast mammography with tomosynthesis is performed in both the craniocaudal and mediolateral oblique views along with computer-aided detection (CAD). FINDINGS: There are scattered areas of fibroglandular density (ACR BI-RADS breast composition Category b). There are no significant masses, abnormal calcifications, or other abnormalities. MM/MM tomosynthesis screening BI IMPRESSION: No mammographic evidence of malignancy. ASSESSMENT: BI-RADS BI-RADS 1 - Negative RECOMMENDATION: Routine annual mammography screening. 1 year F/U This examination should not preclude the clinical evaluation of a suspicious palpable abnormality. This patient's information was entered into a reminder system with a target due date for their next mammogram. Electronically signed by: Jerilyn Hyatt DO 08/20/2024 02:08 PM EST Dictated By: Jerilyn Hyatt DO Signed By: <Electronically signed by Jerilyn Hyatt DO in OV> 08/20/24 1408 DD/ 1400 TD/TT: 08/12/24 1415 Data Warehouse Architect: us Tim Oakley ANP IMG BI PROCEDURES Final Result * Pap Smear (07/30/2024 1:15 PM EST) Swab Cervix uteri structure / Unknown 07/30/2024 1:15 PM EST 07/31/2024 10:20 AM EST [facility] - 08/05/2024 12:48 PM EST ----- ------- Name: Valerie Alford Age/Sex: 59/F : 1965 Unit#: [id number] Attend Dr: KATH ORANTES CNM Re07/30/24 Status: DEP [facility] ----- ------- SPEC : [id number] RECD: 07/31/24-0 STATUS: JERONIMO ESPARZA NUM: [id number] JAN: 07/30/24-[address] [facility] [address]: KATH ORANTES CNM ENTERED: 07/31/24-1038 SP TYPE: Pap Smr OT : ORDERED: Pap Smear Interpretation Satisfactory for evaluation. Negative for intraepithelial lesion or malignancy. Mild inflammation. HPV High Risk: Negative HPV Genotyping 16: Negative HPV Genotyping 18: Negative Clinical Information LMP: Postmenopausal Previous PAP test: 2019, Unknown findings Material Received ThinPrep-Cervical ----- ------- Signed (signature on file) DEEDEE Ross (ASC) 08/05/24 1248 ----- ------- END OF REPORT Kath DE JESUS LAB CYTOLOGY ORDERABLES F inal Result [facility] [address] [place] [address] [phone] * HPV mRNA E6/E7 w/Reflex to HPV Genotypes 16, 18/45 (07/30/2024 12:00 AM EST) Historical Provider MD LAB CYTOLOGY ORDERABLES F inal Result * (ABNORMAL) Lipid Panel, Standard (02/16/2024 10:50 AM EDT) Triglycerides 90 <150 mg/dL [facility] Comment:Desirable Triglyceri de: less than 150 mg/dLBorderline High Triglyceride 150-199 mg/dLHigh Triglyceride: 200-499 mg/dLVery High Triglyceride: greater than or equal to 5OO mg/dL Cholesterol 206(H) <200 mg/dL [facility] Comment:Desirable Cholestero l: less than 200 mg/dLBorderline High Cholesterol: 200-239 mg/dLHigh Cholesterol: greater than 239 mg/dL LDL Cholesterol Calculated 132(H) <100 mg/dL [facility] Comment:Desirable LDL: less than 100 mg/dLNear Optimal/Above Optimal LDL: 110- 129 mg/dLBorderline High LDL: 130-159 mg/dLHigh LDL: 160-189 mg/dLVery High LDL: greater than or equal to 190 mg/dL HDL Cholesterol 56 >40 mg/dL [facility] Comment:Desirable HDL: great er than 40 mg/dL Note: This HDL assay may give artificially low results in patients with liver disease. Blood Venous blood specimen / Unknown 02/16/2024 10:50 AM EDT 02/16/2024 12:50 PM EDT Tim COLINDRES LAB BLOOD ORDERABLES Final Resul t [facility] [address] [place] [phone] * Colonoscopy (12/24/2020) Colonoscopy Normal Normal Liane Guerrero HEALTH MAINTENANCE Final Result from Last 3 Months or Most Recently Relevant to Health Maintenance Insurance [facility] < [address] [place] [place] [id number] Care Teams University Registrar Relationship Specialty Start Date End Date Tim Oakley ANP [address] [place] [phone] PCP - General Family Medicine 03/17/20
[2025-03-21 13:46] VITALS: BP 148/78; PULSE 87; O2SAT 97; BMI 47.2
--- NOTE | 2025-03-21 13:46 | A.OFFVIS_ITS ---
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 She has been using Advair and albuterol MDI/nebs with reasonable control of her underlying asthma symptoms. She does complain of an acute exacerbation symptomatic with productive cough, but no significant wheezing. Her primary care has obtained another sleep study that shows underlying mild obstructive sleep apnea. [facility] Medical History Hx of renal calculi Hx of migraine headaches Elevated cholesterol Asthma HTN (hypertension) Surgical History History of pterygium excision Hx of oophorectomy Hx of dilation and curettage Hx of hemorrhoidectomy Hx of lithotripsy H/O colonoscopy Family History Mother HTN (hypertension) Cancer Family/Other Cancer HTN (hypertension) Social History Household Members: None Alcohol intake: never Patient Tobacco Use Status: Former Tobacco user Years Smoked: 15 +/- Current occupational status: disabled Review of Systems Const Denies daytime sleepiness, Denies excessive sweating, Denies fatigue, Denies fever(s), Denies lethargy, Denies malaise, Denies night sweats, Denies snoring and Denies weight loss Eyes Denies blurry vision and Denies itchy eyes ENT Denies nasal congestion, Denies post nasal drip, Denies sinus pain, Denies sinus pressure and Denies other ( Thrush) Card Denies chest pain, Denies pedal edema, Denies dyspnea, Denies orthopnea and Denies paroxysmal nocturnal dyspnea Resp Reports cough, Denies hemoptysis, Reports excessive phlegm production, Denies dyspnea, Denies snoring and Denies wheezing GI Denies abdominal pain and Denies heartburn Musc Denies myalgias, Denies arthralgias and Denies joint swelling Skin/Breast Denies rash Neuro Denies memory loss and Denies seizure-like activity Psych Denies abnormal sleep pattern, Denies anxiety and Denies memory loss Endo Denies excessive sweating, Denies fatigue and Denies heat intolerance Gagandeep/Lymph Denies easy bruising Aller/Immun Denies itchy eyes, Denies seasonal rhinorrhea and Denies wheezing Physical Exam Vital Signs: Last Vital Signs Pulse 87 03/21/25 13:46 BP 148/78 H 03/21/25 13:46 Pulse Ox 97 03/21/25 13:46 Oxygen Delivery Method Room Air 03/21/25 13:46 BMI result Body Mass Index 47.2 Const General: no acute distress and alert Nutritional Appearance: obese Orientation/consciousness: Other orientation findings ( oriented) HEENT Head: Yes atraumatic Eyes General: appearance normal, both eyes and all related structures Sclerae: sclerae normal EOM: EOMs intact bilaterally Neck Neck: Yes supple Lymphatic: no lymphadenopathy noted Resp Effort & Inspection: normal respiratory effort and no use of accessory muscles Auscultation: clear to auscultation bilaterally Cardio Rate: regular rate Rhythm: regular rhythm Heart sounds: no gallops, no murmurs and no rubs Skin General skin exam: other ( warm) Extrem General: No clubbing, No cyanosis and No edema Assessment & Plan Assessment & Plan (1) Asthma: Code(s): J45.909 - Unspecified asthma, uncomplicated Category: Medical Plan: Baseline well controlled on Advair and albuterol MDI/nebs. Continue current regimen. (2) SUJATHA (obstructive sleep apnea): Code(s): G47.33 - Obstructive sleep apnea (adult) (pediatric) Category: Medical Plan: Results of sleep study reviewed underlying mild obstructive sleep apnea. Continue CPAP therapy. Medications: New azithromycin For 250 mg dose pack: take 500 mg today (day 1), then 250 mg for 4 days (days 2-5) PO 6 tabs 0RF albuterol sulfate 90 mcg/actuation 2 puffs inhalation Q4-6H PRN 1 ea 6RF Shortness Of Breath Or Wheezing Refilled fluticasone propion-salmeterol 250-50 mcg/dose (Advair Diskus) 1 inh inhalation BID 1 ea 6RF 30 days R06.00 - Dyspnea, unspecified Coding Level of Care Code Est Pt Level 4 (32279) Diagnoses Asthma J45.909 SUJATHA (obstructive sleep apnea) G47.33
== END 2025-03-21 14:55 | disposition home or self-care (01) ==
LOC: HO.HPS 13:31
PROVIDERS: PCP Nurse Practitioner Primary Care; Visit Provider Internal Medicine Pulmonary Disease
DX: J45.909 Unspecified asthma, uncomplicated (principal); G47.33 Obstructive sleep apnea (adult) (pediatric)
CPT/HCPCS: 99214

== ENCOUNTER → 2025-03-21 13:31 | Outpatient (BNVA) | payer OTHER, SELFPAY | PROVIDERS: PCP Nurse Practitioner Primary Care; Visit Provider Internal Medicine Pulmonary Disease | DX: J45.40 Moderate persistent asthma, uncomplicated (principal); G47.33 Obstructive sleep apnea (adult) (pediatric); Z99.89 Dependence on other enabling machines and devices | CPT/HCPCS: 99212 ==